=== PATIENT | female | born 1950 | race Caucasian/White ===

== ENCOUNTER 2022-01-25 09:28 | Emergency (ER) | payer MEDICARE, SELFPAY ==
[2022-01-25 09:40] VITALS: BP 156/92; PULSE 86; RESP 18; TEMP 36.6; O2SAT 100; BMI 22.3
--- NOTE | 2022-01-25 10:26 | ED.CHESTPAIN ---
HPI - Chest Pain General Chief Complaint: Chest Pain Stated Complaint: Chest pain Time Seen by Provider: 01/25/22 09:38 History of Present Illness HPI narrative: This 71-year-old female comes in reporting some discomfort in her left chest and breast area. She states that this is been present in the past and now is happening again. She called to make a clinic appointment and was directed to the emergency department. She does not have any nausea, vomiting, lightheadedness, shortness of breath, diaphoresis, or exercise intolerance. She states that she can press on her left upper breast area and reproduce the pain distinctly. She has some very mild symptoms also when taking a real deep breath. She does not report any recent injury event but states that she typically sleeps on her left side and sometimes awakes with similar symptoms. She did go to a chiropractor a while back who stated that this could be costal chondritis. Additionally she had a cardiac workup routinely a couple years ago including echocardiogram and other lab tests. These all returned with very low risk for cardiac disease. She does not have any cardiac risk factors but states that her father did of a heart attack at a young age but he had a heart condition from an infection that occurred in his teenage years. Related Data Home Medications Medication Instructions Recorded Confirmed No Known Home Medications 01/25/22 01/25/22 Allergies Allergy/AdvReac Type Severity Reaction Status Date / Time acetaminophen [From Tylenol] Allergy Vomiting Verified 01/25/22 09:46 midazolam [From Versed] Allergy Vomiting Verified 01/25/22 09:46 Sulfa (Sulfonamide Allergy Unknown Verified 01/25/22 09:46 Antibiotics) Review of Systems Status of ROS Reports: 10 or more systems reviewed and unremarkable except as noted in History and below Narrative Constitutional: No fevers, no weight gain or loss. Eyes: No discharge. No vision changes. HENT: No congestion, no sore throat, no ear pain. Cardiovascular: No palpitations. Chest discomfort as described above. Respiratory: No shortness of breath, no wheezes, no cough. Gastrointestinal: No abdominal pain, no vomiting, no diarrhea. Genitourinary: No dysuria, no hematuria. Musculoskeletal: Normal range of motion. Skin: No rashes, no pruritis. Neurological: No dizziness, weakness, sensory change, speech change. Endo/Heme/Allergies: No bruising or bleeding. No polydipsia. Pysch: no suicidality, no anxiety, no insomnia. All other systems reviewed and are negative. Exam Narrative Exam Narrative: Constitutional: Well-developed, well-nourished, no acute distress. HEENT: Normocephalic, atraumatic. Neck: Normal range of motion. Nontender. Supple. Heart: Regular. No murmurs. Normal rate. Intact distal pulses. Lungs: Clear to auscultation. No wheezes, rhonchi, or rales. Chest discomfort is distinctly reproducible when palpating over the left upper breast and ribs. Abdomen: Normal bowel sounds. Nontender. No rebound tenderness. Genitalia: Deferred. Back: No midline tenderness. Normal range of motion. Extremities: Normal range of motion. No injury. Skin: Intact. No rash. Warm. No erythema or pallor. Neurologic: No altered sensation. No weakness. Alert and oriented. Psychiatric: No suicidality. No anxiety or depression. No insomnia. Nursing notes and vitals signs are reviewed. Const Vital Signs, click to edit/add: Vital Signs - 24 hr 01/25/22 09:40 Temperature 97.9 F Pulse Rate [Left Pulse Oximeter] 86 Respiratory Rate 18 Blood Pressure [Left Upper Arm] 156/92 H Pulse Oximetry 100 Oxygen Delivery Method Room Air Course Vital Signs Vital signs: Initial Vital Signs Temperature 97.9 F 01/25/22 09:40 Temperature Source Temporal Artery Scan 01/25/22 09:40 Pulse Rate 86 01/25/22 09:40 Pulse Rhythm 01/25/22 09:40 Pulse Strength 3+ Normal 01/25/22 09:40 Respiratory Rate 18 01/25/22 09:40 Blood Pressure 156/92 H 01/25/22 09:40 Blood Pressure Mean 113 01/25/22 09:40 Blood Pressure Position Sitting 01/25/22 09:40 Pulse Oximetry 100 01/25/22 09:40 Oxygen Delivery Method 01/25/22 09:40 Vital Signs Temperature 97.9 F 01/25/22 09:40 Pulse Rate 86 01/25/22 09:40 Respiratory Rate 18 01/25/22 09:40 Blood Pressure 156/92 H 01/25/22 09:40 Pulse Oximetry 100 01/25/22 09:40 Oxygen Delivery Method 01/25/22 09:40 Temperature 97.9 F 01/25/22 09:40 Pulse Rate 86 01/25/22 09:40 Respiratory Rate 18 01/25/22 09:40 Blood Pressure 156/92 H 01/25/22 09:40 Pulse Oximetry 100 01/25/22 09:40 Oxygen Delivery Method 01/25/22 09:40 MDM - Chest Pain MDM Narrative Medical decision making narrative: This patient comes in with which she believes is some breast discomfort or chest wall pain. She is not exhibiting any signs or symptoms typical of angina. Her pain is reproducible when palpating her chest wall. This is then very likely chest wall pain. Her exam and vital signs are in normal range. I discussed lab and imaging options which the patient declined in a process of shared decision making. She was hoping to go to a clinic appointment but was redirected here. I did describe signs and symptoms that would indicate a need for return and re-evaluation. Discharge Plan Discharge Clinical Impression: Chest wall pain Patient Disposition: Home, Self-Care Condition: Stable Instructions: Chest Wall Pain (ED) Additional Instructions: Use [id number] medicines as needed and directed. Follow up with MD or return if worsening symptoms occur. Prescriptions: No Action No Known Home Medications Stand Alone Forms: [facility] Info Instructions
== END 2022-01-25 10:42 | disposition home or self-care (01) ==
LOC: ED 10:34
PROVIDERS: Emergency Provider Emergency Medicine Emergency Medical Services; PCP Family Medicine
DX: R07.89 Other chest pain (principal)
CPT/HCPCS: 99283; 99284

== ENCOUNTER 2024-10-14 23:30 | Emergency (ER) | payer MEDICARE, SELFPAY ==
--- OUTSIDE RECORDS SUMMARY | 2024-10-14 23:32 | XMS_ITS | Encounter Summary ---
Author Organization [place] Address [address] [place] [address] Care Team Providers Care Animal Services Officer Name Role Phone Aurora Reyes PA-C Primary Care Provider Aurora Reyes PA-C Unavailable [phone] Aurora Reyes PA-C Unavailable [phone] Lavern Birmingham MD Primary Care Provider [phone] Keith Frost MD Unavailable [phone] Encounter Details Date Type Department Care Team (Late st Contact Info) Description 01/30/2017 [facility] Blood and Marrow Transplant Program [address] [address] [facility] Social History Tobacco Use Types Packs/Day Years Used Date Smoking Tobacco: Former Cigarettes 0.5 3 1 07/14/1970 - 05/28/1974 Smokeless Tobacco: Never Alcohol Use Standard Drinks/Week Comments No 0 (1 standard drink = 0.6 oz pur e alcohol) Comments No Sex and Gender Information Value Date Recorded Sex Assigned at Not on file 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 Gender Identity Not on file Sexual Orientation Not on file 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 as of this encounter Plan of Treatment Not on file documented as of this encounter Visit Diagnoses Not on filedocumented in this encounter Care Teams Animal Services Officer Relationship Specialty Start Date End Date Aurora Reyes PA-C PCP - General Physician Telephone Claims Representative 10/26/16 07/03/23 Aurora Reyes PA-C [facility] [address] [place] [address] PCP - Assigned PCP 10/15/16 08/06/18 Lavern Birmingham MD [address] [place] [address] PCP - General Family Medicine 11/15/23 Aurora Reyes PA-C [facility] [address] [place] [address] Assigned PCP 10/15/16 05/29/20 [place] [address] [place] [address] Assigned Surgical Provider 11/25/23 documented as of this encounter
--- OUTSIDE RECORDS SUMMARY | 2024-10-14 23:32 | XMS_ITS | Encounter Summary ---
Author Organization [place] Address [facility] [place] [address] Care Team Providers Care Bible Worker Name Role Phone Aurora Reyes PA-C Primary Care Provider Aurora Reyes PA-C Unavailable [phone] Aurora Reyes PA-C Unavailable [phone] Lavern Birmingham MD Primary Care Provider Keith Frost MD Unavailable [phone] Reason for Visit * Reason Onset Date Comments MyChart Communication 05/21/2017 Appointment 05/21/2017 Annual physical Encounter Details Date Type Department Care Team (Late st Contact Info) Description 05/21/2017 [facility] Medical Advice [facility] [address] [place] [address] [address] [place] [address] Aurora Reyes PA-C [address] [place], [place] [address] MyChart Communication; Appointment (Annual... 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 as of this encounter Miscellaneous Notes * Telephone Encounter - Odette Kang RN - 05/21/2017 11:02 AM CST Sent mychart as per below Odette Kang RN MATION MACHINE OPERATOR documented in this encounter Plan of Treatment Not on file documented as of this encounter Visit Diagnoses Not on filedocumented in this encounter Care Teams Bible Worker Relationship Specialty Start Date End Date Aurora Reyes PA-C PCP - General Physician Utility Mechanic 10/26/16 07/03/23 Aurora Reyes PA-C [address] [place] [address] PCP - Assigned PCP 10/15/16 08/06/18 Lavern Birmingham MD [address] [place] [address] PCP - General Family Medicine 11/15/23 Aurora Reyes PA-C [facility] [address] [facility] [address] [place] [address] Assigned PCP 10/15/16 05/29/20 [place] [address] [address] Assigned Surgical Provider 11/25/23 documented as of this encounter
--- OUTSIDE RECORDS SUMMARY | 2024-10-14 23:32 | XMS_ITS | Encounter Summary ---
Author Organization [place] Address [address] [place] [address] Care Team Providers Care Pipelines Manager Name Role Phone Neftaly Smith MD Primary Care Provider [phone] Aurora Reyes PA-C Primary Care Provider Aurora Reyes PA-C Unavailable [phone] Aurora Reyes PA-C Unavailable [phone] Lavern Birmingham MD Primary Care Provider [phone] Keith Frost MD Unavailable [phone] Reason for Visit * Reason Onset Date Comments MyChart Communication 07/22/2014 Encounter Details Date Type Department Care Team (Late st Contact Info) Description 07/22/[address] 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 as of this encounter Plan of Treatment Not on file documented as of this encounter Visit Diagnoses Not on filedocumented in this encounter Care Teams Pipelines Manager Relationship Specialty Start Date End Date Neftaly Smith MD PCP - General Family Practice 09/29/11 10/25/16 Aurora Reyes PA-C PCP - General Physician Ethylene Compressor Operator 10/26/16 07/03/23 Aurora Reyes PA-C [place] [id number] [facility] [address] [place] [address] PCP - Assigned PCP 10/15/16 08/06/18 Lavern Birmingham MD [address] [place] [address] PCP - General Family Medicine 11/15/23 Aurora Reyes PA-C [facility] [address] [place] [address] [address] [place] [address] Assigned PCP 10/15/16 05/29/20 [place] [address] [place] [address] Assigned Surgical Provider 11/25/23 documented as of this encounter
--- OUTSIDE RECORDS SUMMARY | 2024-10-14 23:32 | XMS_ITS | Encounter Summary ---
Author Organization [facility] Address [address] [place] [address] Care Team Providers Care Powerhouse Electrician Name Role Phone Unavailable Primary Care Provider Unavailabl e Reason for Referral * Outpatient (Routine) - Closed Specialty Diagnoses / Procedures Referred By Lou t Referred To Contact Diagnoses Pain Hip Right Arthroplasty Total Hip Replacement Status Post Procedures DX Hip And Pelvis Right 4+ Views Ivan Lubin M.D. [address] [place] [address] Phone: tel: fax: [facility] Referral ID Status Reason Start Date Expiration Date Visits Re quested Visits Authorized [id number] Closed 09/19/2023 09/18/2024 1 1 Encounter Details Date Type Department Care Team (Late st Contact Info) Description 09/19/2023 Orders Only Department of Orthopedic Surgery in [place], [place] [address] [place] [phone] [facility], MD Isaac Pain Hip Right; Arthroplasty Total Hip Replacement Status Post Social History Tobacco Use Types Packs/Day Years Used Date Smoking Tobacco: Never Assessed Nutrition Answer Date Recorded Nutrition: EVOO Fat Source Unknown 08/30 Nutrition: Servings of Fruits/Vegetables per Day Not on file 08/31/2023 Dental Answer Date Recorded Dental: Regular Dentist Unknown 08/31/19 24 Comments Unknown Sex and Gender Information Value Date Recorded Sex Assigned at Choose not to disclose 11:00 AM CDT Legal Sex Female 9:[address] LANDSCAPE ARCHITECT Gender Identity Female 01/28/2024 11:00 AM CDT Sexual Orientation Choose not to disclose 2023 11:00 AM CDT documented as of this encounter Plan of Treatment Not on file documented as of this encounter Results * DX Hip And Pelvis Right 4+ Views (01/28/2024 9:22 AM CDT) Anatomical Region Laterality Modality Lower Extremity, Pelvis, Hip , Musculoskeletal RST LOS, Musculoskeletal ARZ LOS, Muskuloskeletal FLA LOS Right Digit al Radiography Impressions 01/28/2024 9:51 AM CDT Uncemented right SANTA. Very thin rim of lucency about the tip of the femoral stem. Left SANTA. 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 Pelvic surgical clip. Osteopenia. 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 Narrative 01/28/2024 9:51 AM CDT EXAM: DX HIP AND PELVIS RIGHT 4+ VIEWS Procedure Note Amalia Mckenzie M.D. - 01/28/2024 EXAM: DX HIP AND PELVIS RIGHT 4+ VIEWS IMPRESSION: Uncemented right SANTA. Very thin rim of lucency about the tip of thefemoral stem. Left SANTA. 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 Pelvic surgical clip. Osteopenia. Heterotopic ossificationadjacent to the right ischium. Ivan Lubin M.D. [facility] OCEDURES Final Result documented in this encounter Visit Diagnoses Diagnosis Pain Hip Right Arthroplasty Total Hip Replacement Status Post Pain Hip Right Arthroplasty Total Hip Replacement Status Post documented in this encounter
--- OUTSIDE RECORDS SUMMARY | 2024-10-14 23:32 | XMS_ITS | Encounter Summary ---
Author Organization [place] Address [address] [place] [address] Care Team Providers Care Tubing Drier Name Role Phone Neftaly Smith MD Primary Care Provider + [phone] Aurora Reyes PA-C Primary Care Provider Aurora Reyes PA-C Unavailable [phone] Aurora Reyes PA-C Unavailable [phone] Lavern Birmingham MD Primary Care Provider [phone] Keith Frost MD Unavailable [phone] Encounter Details Date Type Department Care Team (Late st Contact Info) Description 01/05/2015 MyC Medical Advice [facility] [address] [place] [address] [place] [address] [place] [address] Social History Tobacco Use Types Packs/Day Years Used Date Smoking Tobacco: Former Cigarettes 0.5 3 1 07/14/1970 - 05/28/1974 Smokeless Tobacco: Never Alcohol Use Standard Drinks/Week Comments No 0 (1 standard drink = 0.6 oz pur e alcohol) Comments No Sex and Gender Information Value Date Recorded Sex Assigned at Not on file Legal Sex Female 5:10 AM CFA Gender Identity Not on file Sexual Orientation Not on file 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 as of this encounter Plan of Treatment Not on file documented as of this encounter Visit Diagnoses Not on filedocumented in this encounter Care Teams Tubing Drier Relationship Specialty Start Date End Date Neftaly Smith MD PCP - General Family Practice 09/29/11 10/25/16 Aurora Reyes PA-C PCP - General Physician Automatic Casting Machine Operator 10/26/16 07/03/23 Aurora Reyes PA-C [place] [id number] [facility] [address] [place] [address] PCP - Assigned PCP 10/15/16 08/06/18 Lavern Birmingham MD [address] [place] [address] PCP - General Family Medicine 11/15/23 Aurora Reyes PA-C [address] [place] [address] Assigned PCP 10/15/16 05/29/20 [place] [address] [place] [address] Assigned Surgical Provider 11/25/23 documented as of this encounter
--- OUTSIDE RECORDS SUMMARY | 2024-10-14 23:32 | XMS_ITS | Clinical Summary ---
Author Organization [facility] Address [address] [place] [address] Care Team Providers Care Clinical Technician Name Role Phone Lavern Birmingham MD Primary Care Provider Keith Frost MD Unavailable [phone] Allergies Active Allergy Reactions Criticality Noted Date Comments Codeine Sulfate Nausea and Vomiting 03/29/2010 Fentanyl Nausea and Vomiting 03/29/2010 Gabapentin Dermatitis,Other (Se e Comments) 01/19/2015 Hands and feet become red and have a tingling feeling. Medications Capsicum-Garlic 200-300 MG CAPS Take 1 capsule by mouth daily 5 Active ascorbic acid (VITAMIN C) 500 MG tablet Take 1 tablet (500 mg) by mouth daily 30 tablet 5 Active multivitamin, therapeutic with minerals (THERA-VIT-M) TABS Take 1 tablet by mouth daily Active VITAMIN D, CHOLECALCIFEROL, PO Take 1,000 Units by mouth daily Active amitriptyline (ELAVIL) 50 MG tabletIndication s:Fibromyalgia Take 1 tablet (50 mg) by mouth At Bedtime 90 tablet 3 7 Active Additional Information Patient not taking.Reported on 11/15/2023 amitriptyline (ELAVIL) 10 MG tabletIndication s:Fibromyalgia Take 40 mg for 1 week. Decrease dose by 10 mg every week until tapered off 90 tablet 1 7 Active Additional Information Patient not taking.Reported on 11/15/2023 lisinopril (ZESTRIL) 20 MG tablet Take 1 tablet by mouth daily 4 Active Active Problems Patient Care Coordination No te Formatting of this note migh t be different from the original. [email or web address] Problem Noted Date Diagnosed Date Mohs defect of right nose 11/15/2023 Breast cancer screening 07/15/2015 Overview (07/15/2015): Mammogram provokes fibromyalgia Degenerative arthritis of hip 01/18/2015 S/P total hip arthroplasty 08/13/2013 Hyperlipidemia LDL goal <130 03/14/2012 Hypertension goal BP (blood pressure) < 140/90 0 10/02/2011 Fibromyalgia 03/29/2010 Resolved Problems Problem Noted Date Diagnosed Date Resolved Date Degenerative arthritis of hip 05/08/2012 08/13/2013 Hip arthritis 05/03/2012 08/13/2013 Lumbago 10/26/2011 11/22/2011 Hip pain 10/26/2011 11/22/2011 Advanced directives, counseling/discussion 02/24/2011 11/19/2023 Overview (02/24/2011): Advance Directive Problem List Overview: Name Relationship Phone Primary Health Care Agent Alternative Health Care Agent Patient states has Advance Directive and will bring in a copy to clinic. 02/24/2011 Immunizations Immunization Administration Dates Next Due TDAP (Adacel,Boostrix) 02/15/2009 Family History Medical History Relation Comments Cardiovascular Father [place] Cancer Maternal Grandfather Breast Cancer Maternal Grandmother Diagnosed @ 69 lived to be 91 Cancer Maternal Grandmother Cerebrovascular Disease Mother 2 stroke Cancer Paternal Grandfather Cancer Paternal Grandmother Gynecology Sister 1 Uterine cancer Other Cancer Sister 2 uterine Hypertension Sister 3 Cervical Cancer Sister 4 Relation Status Comments Father Maternal Grandfather Maternal Grandmother Mother 04/17/12 Paternal Grandfather Paternal Grandmother Sister 1 Alive Sister 2 Sister 3 Sister 4 Social History Tobacco Use Types Packs/Day Years Used Date Smoking Tobacco: Former Cigarettes 0.5 3 1 07/14/1970 - 05/28/1974 Smokeless Tobacco: Never Alcohol Use Standard Drinks/Week Comments No 0 (1 standard drink = 0.6 oz pur e alcohol) PHQ-2 Answer Date Recorded PHQ-2 Score 0 11/15/2023 Adolescent Education Answer Date Record ed Getting School Help Needed Not on file 11/14 Comments No Sex and Gender Information Value Date Recorded Sex Assigned at Not on file Legal Sex Female 5:10 AM MACHINIST SET UP Gender Identity Not on file Sexual Orientation Not on file 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 Last Filed Vital Signs Vital Sign Reading Time Taken Comments Blood Pressure 149/89 12/27/2023 11:45 AM CDT Pulse 80 12/27/2023 11:45 AM CDT Temperature 36.7 C (98.1 F) 12/27/2023 11:45 AM CDT Respiratory Rate 16 12/27/2023 11:4 5 AM CDT Oxygen Saturation 99% 12/27/2023 11: 45 AM CDT Inhaled Oxygen Concentration - - Weight 59.8 kg (131 lb 14.4 oz) 017 10:06 AM MACHINIST SET UP Height 163.5 cm (5' 4.37) 10/26/2016 1 1:22 AM CDT Body Mass Index 22.38 10/26/2016 11:22 AM CDT Plan of Treatment Health Maintenance Due Date Last Done Comments ANNUAL REVIEW OF HM ORDERS 1950 CT COLONOGRAPHY 1950 FIT 1950 FLEX SIG 1950 sDNA (Cologuard) 1950 Pneumococcal Vaccine: 50+ Years (1 of 1 - PCV) 2002 ZOSTER IMMUNIZATION (1 of 2) 2002 ADVANCE CARE PLANNING 02/25/2016 02/24/2011, 011 LIPID 10/05/2016 10/06/2015, 09/2015, 01/28/2014, Additional history exists BMP 10/05/2017 10/05/2016, 09/2015, 10/06/2015, Additional history exists FALL RISK ASSESSMENT 2017 DTAP/TDAP/TD IMMUNIZATION (2 - Td or Tdap) 02/15/2019 02/15/2009, 08/02/1998 DIABETES SCREENING 10/06/2019 10/05/2016, 0 10/06/2015, 10/06/2015, Additional history exists COLONOSCOPY 11/05/2021 11/06/2011 COLORECTAL CANCER SCREENING 11/05/2021 COVID-19 Vaccine ( - 2023- season) 2024 MEDICARE ANNUAL WELLNESS VISIT 02/24/2024 02/23/2023, 02/02/2022, 12/09/2020, Additional history exists PHQ-2 (once per calendar year) 2024 11/15/2023, 05/21/2017 MAMMO SCREENING 02/24/2026 02/25/2024, 02/03, 01/31/2022, Additional history exists RSV VACCINE (1 - 1-dose 75+ series) 11/27/2027 DEXA 02/02/2037 02/02/2022 INFLUENZA VACCINE Discontinued 03/08/2011 HEPATITIS C SCREENING Completed 12/09/2020 HPV IMMUNIZATION Aged Out No longer e ligible based on patient's age to complete this topic MENINGITIS IMMUNIZATION Aged Out No l onger eligible based on patient's age to complete this topic Medical Devices Implanted Type Area Talent Development Director Device Identifier Shelf Expiration Date Model / Serial / Lot Imp Shell Acetabulum Zim Multi 50mm [id number] Implanted:Qty: 1 on 05/08/2012 by Shorty Mcnamara MD at [facility] Left: Hip [employer] 03/03/20220-0 5 0-20 / [id number] Imp Scr Zim 6.5x35mm Acet Cup Self Tap [id number] Implanted:Qty: 1 on 05/08/2012 by Shorty Mcnamara MD at [facility] Left: Hip [employer] 01/31/2022-0-0 6 5-35 / [id number] Imp Scr Zim 6.5x20mm Acet Cup Self Tap [id number] Implanted:Qty: 1 on 05/08/2012 by Shorty Mcnamara MD at [facility] Left: Hip [employer] 05/03/20200-0 6 5-20 / / [id number] Imp Liner Acetabulum Zim Xlpe [id number] Implanted:Qty: 1 on 05/08/2012 by Shorty Mcnamara MD at [facility] Left: Hip [employer] 04/02/20176305-0 5 0-32 / / [id number] Imp Stem Zim Taper Kinectiv M/L Sz 12.5 Implanted:Qty: 1 on 05/08/2012 by Shorty Mcnamara MD at [facility] Left: Hip 05/03/2021- / [id number] Imp Femoral Neck Zim Mod Taper Kinectiv E [id number] Implanted:Qty: 1 on 05/08/2012 by Shorty Mcnamara MD at [facility] Left: Hip 08/31/202148 2- / [id number] Imp Head Femoral Zim +0x32mm Implanted:Qty: 1 on 05/08/2012 by Shorty Mcnamara MD at [facility] Left: Hip 03/03/20228018-03 - / [id number] Imp Scr Zim 6.5x30mm Acet Cup Self Tap Implanted:Qty: 1 on 01/18/2015 by Shorty Mcnamara MD at [facility] Right: Hip [employer] 11/01/2024- / [id number] / [id number] Imp Scr Zim 6.5x30mm Acet Cup Self Tap Implanted:Qty: 1 on 01/18/2015 by Shorty Mcnamara MD at [facility] Right: Hip [employer] 10/01/2024 5-30 / [id number] / [id number] Imp Stem Zim Taper Kinectiv M/L Sz 13.5 [id number] Implanted:Qty: 1 on 01/18/2015 by Shorty Mcnamara MD at [facility] Right: Hip [employer] 08/01/2024-7713-01 3-00 / [id number] / [id number] Imp Head Femoral Zim Versys 36mm +0 [id number] Implanted:Qty: 1 on 01/18/2015 by Shorty Mcnamara MD at [facility] Right: Hip [employer] 12/01/2024-8018-03 6-02 / [id number] Imp Femoral Neck Zim Mod Taper Kinectiv K [id number] Implanted:Qty: 1 on 01/18/2015 by Shorty Mcnamara MD at [facility] Right: Hip [employer] 11/01/20247848-00 2-00 / [id number] Acetabular Shell 52mm Implanted:Qty: 1 on 01/18/2015 by Shorty Mcnamara MD at [facility] Right: Hip [employer] 04/03/2023 / [id number] Imp Liner Acetabulum Zim Xlpe [id number] Implanted:Qty: 1 on 01/18/2015 by Shorty Mcnamara MD at [facility] Right: Hip [employer] 06/03/2019-6305-05 0-36 / [id number] Procedures Procedure Name Priority Date/Time Associated Diagnosis Comments MA SCREENING DIGITAL BILATERAL Routine 05/02/2017 10:45 AM MACHINIST SET UP Visit for screening mammogram COMPREHENSIVE METABOLIC PANEL Routine 10/05/2016 9:03 AM CDT Idiopathic progressive polyneuropathy LIPID REFLEX TO DIRECT LDL PANEL Routine 10/06/2015 7:40 AM CDT Hyperlipidemia LDL goal <130 COLONOSCOPY Routine 11/06/2011 from Last 3 Months or Most Recently Relevant to Health Maintenance Results * MA Screening Digital Bilateral (05/02/2017 10:45 AM MACHINIST SET UP) Anatomical Region Laterality Modality Breast Bilateral Mammography Impressions 05/03/2017 8:49 AM MACHINIST SET UP IMPRESSION: BI-RADS CATEGORY: 2 - Benign Finding(s). RECOMMENDED FOLLOW-UP: Annual Mammography Results to be sent to patient. I have personally reviewed the examination and initial interpretation and I agree with the findings. JUAN VASQUEZ MD Narrative 05/03/2017 8:49 AM MACHINIST SET UP SCREENING MAMMOGRAM, BILATERAL, DIGITAL, with CAD HISTORY: Asymptomatic, routine screening. History of sister with breast cancer at age 60. 3 second-degree relatives with history of breast cancer, the earliest diagnosis being at age 62. History of breast biopsy in 1976. COMPARISON: Screening mammogram 09/23/2012, 02/15/2009 TECHNIQUE: Routine screening mammogram with CAD. BREAST DENSITY: Scattered fibroglandular densities. FINDINGS: No significant change. The surgical scar in the left medial breast is marked. Procedure Note Juan Vasquez MD - 05/03/2017 SCREENING MAMMOGRAM, BILATERAL, DIGITAL, with CAD HISTORY: Asymptomatic, routine screening. History of sister with breast cancer at age 60. 3 second-degree relatives with history of breast cancer, the earliest diagnosis being at age 62. History of breast biopsy in 1976. COMPARISON: Screening mammogram 09/23/2012, 02/15/2009 TECHNIQUE: Routine screening mammogram with CAD. BREAST DENSITY: Scattered fibroglandular densities. FINDINGS: No significant change. The surgical scar in the left medial breast is marked. IMPRESSION: BI-RADS CATEGORY: 2 - Benign Finding(s). RECOMMENDED FOLLOW-UP: Annual Mammography Results to be sent to patient. I have personally reviewed the examination and initial interpretation and I agree with the findings. JUAN VASQUEZ MD Aurora Reyes PA-C IMG MAMMOGRAPHY ORDERAB LES Final Result * Comprehensive metabolic panel (10/05/2016 9:03 AM CDT) Sodium 141 133 - 144 mmol/L [facility] Potassium 4.5 3.4 - 5.3 mmol/L [facility] Chloride 104 94 - 109 mmol/L [facility] Carbon Dioxide 28 20 - 32 mmol/L [facility] Anion Gap 9 3 - 14 mmol/L [facility] Glucose 91 70 - 99 mg/dL [facility] Urea Nitrogen 16 7 - 30 mg/dL [facility] Creatinine 0.66 0.52 - 1.04 mg/dL [facility] GFR Estimate >90 Non GFR Calc >60 mL/min/1. 7m2 [facility] GFR Estimate If Black >90 GFR Calc >60 mL/min/1. 7m2 [facility] Calcium 9.9 8.5 - 10.1 mg/dL [facility] Bilirubin Total 0.5 0.2 - 1.3 mg/dL [facility] Albumin 4.0 3.4 - 5.0 g/dL [facility] Protein Total 8.0 6.8 - 8.8 g/dL [facility] Alkaline Phosphatase 68 40 - 150 U/L [facility] ALT 28 0 - 50 U/L [facility] AST 16 0 - 45 U/L [facility] Blood specimen (specimen) 10/05/2016 9:03 AM CDT 10/05/2016 9:04 AM CDT Aurora Reyes PA-C LAB - BLOOD ORDERABLES Final Result [facility] [address] [place] [address] * (ABNORMAL) Lipid panel reflex to direct LDL (10/06/2015 7:40 AM CDT) Cholesterol 227(H) <200 mg/dL [facility] Comment:Desirable: <200 mg/d l Triglycerides 79 <150 mg/dL [facility] Comment:Fasting specimen HDL Cholesterol 61 >49 mg/dL [facility] LDL Cholesterol Calculated 150(H) <100 mg/dL [facility] Comment: Above desirable: 100-129 mg/dl Borderline High: 130-159 mg/dL High: 160-189 mg/dL Very high: >189 mg/dl Non HDL Cholesterol 166(H) <130 mg/dL [facility] Comment: Above Desirable: 130-159 mg/dl Borderline high: 160-189 mg/dl High: 190-219 mg/dl Very high: >219 mg/dl Blood specimen (specimen) 10/06/2015 7:40 AM CDT 10/06/2015 8:15 AM CDT us Bao Rodney MD LAB - BLOOD ORDERABLES Fi nal Result [facility] [address] [place] [address] * COLONOSCOPY (11/06/2011) us Neftaly Smith MD PROCEDURES Final Result from Last 3 Months or Most Recently Relevant to Health Maintenance Insurance [employer] MEDICARE ADVANTAGE [employer] MEDICARE ADVANTAGE Advance Directives For more information, please contact: [phone] Documents on File Type Date Recorded Patient Digital Editor Expl anation Advance Directives and Living Will 05/26/2012 5:51 PM VALIDATION OF AD-05/08/2012 Advance Directives and Living Will 05/26/2012 5:51 PM HEALTH CARE DIRECTIVE-05/08/2012 * Full Code (Latest Code Status on File) Date Activated Date Inactivated Comments 01/20/2015 9:42 AM * Full Code Date Activated Date Inactivated Comments 01/18/2015 4:59 PM 01/20/2015 9:42 AM * Full Code Date Activated Date Inactivated Comments 05/10/2012 8:30 AM 01/18/2015 4:59 PM * Full Code Date Activated Date Inactivated Comments 05/08/2012 6:37 PM 05/10/2012 8:30 AM Care Teams Clinical Technician Relationship Specialty Start Date End Date Lavern Birmingham MD [address] [place] [address] PCP - General Family Medicine 11/15/23 [place] [address] [place] [address] Assigned Surgical Provider 11/25/23
--- OUTSIDE RECORDS SUMMARY | 2024-10-14 23:32 | XMS_ITS | Encounter Summary ---
Author Organization [facility] Address [address] [place] [address]. 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
--- OUTSIDE RECORDS SUMMARY | 2024-10-14 23:32 | XMS_ITS | Clinical Summary ---
Author Organization [facility] Address [address] [place] [address] Care Team Providers Care Glove Parts Cutter Name Role Phone Unavailable Primary Care Provider Unavailabl e Source Comments Patient records contain information from all sites at [facility]. For routine questions regarding patient records, call [phone] during business hours, M-F 8:00 AM - 5:00 PM Central Time. Record requests for emergency care only can be directed to [phone] at any time.[facility] Allergies Active Allergy Reactions Criticality Noted Date Comments Chlorthalidone Itching 07/26/2007 Codeine Nausea And Vomiting 06/10/2007 Fentanyl Nausea And Vomiting,Other (see comments) 03/29/2010 Gabapentin Dermatitis,Other (se e comments),Rash 01/19/2015 Hands and feet become red and have a tingling feeling. Grass Pollen Headache,Other (see comments) 11/27/2023 Medications * This document contains information received from the source organization and may not represent a complete record from that organization. lisinopriL 20 mg tablet Take 1 tablet by mouth daily. 10/04/2023 Active ascorbic acid, vitamin C, (Vitamin C) 1,000 mg tablet 02/13/2023 Act rudolph cholecalciferol, vitamin D3, 10 mcg (400 unit) capsule Active magnesium 200 mg tablet Active multivitamin tablet Take 1 tablet by mouth daily. 05/23/2007 Active vitamin E 180 mg (400 Unit) capsule Active omega 1-sya-rje-fish oil 100-400-1,000 mg capsule Take 1 g by mouth daily. 12/31/2014 Active UNABLE TO FIND GARLIC Activ e Social History Tobacco Use Types Packs/Day Years Used Date Smoking Tobacco: Never Assessed [facility] Utilities Answer Date Recorded In the past 12 months has shiva e electric, gas, oil, or water company threatened to shut off services in your home? Patient declined 01/28/2024 Exercise Vital Sign Answer Date Recorde d On average, how many days pe r week do you engage in moderate to strenuous exercise (like a brisk walk)? 5 days 01/28/2024 On average, how many minutes do you engage in exercise at this level? 30 min 01/28/2024 Hunger Vital Sign Answer Date Recorded Within the past 12 months, y ou worried that your food would run out before you got the money to buy more. Never true 01/28/20 Within the past 12 months, t he food you bought just didn't last and you didn't have money to get more. Never true 01/28/2024 PRAPARE - Transportation Answer Date Re corded In the past 12 months, has l ack of transportation kept you from medical appointments or from getting medications? No 01/03 In the past 12 months, has l ack of transportation kept you from meetings, work, or from getting things needed for daily living? No 01/28/2024 Nutrition Answer Date Recorded On average, how many serving s of fruits and vegetables do you eat per day (serving size is equal to 1 cup or approximately the size of a tennis ball)? 3-5 01/28/2024 Dental Answer Date Recorded Dental: Regular Dentist No 01/28/20 Employment Answer Date Recorded Employment status Retired 01/28/2024 Housing Stability Answer Date Recorded What is your living situation today? 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 Gender Identity Female 01/28/2024 11:00 AM CDT Sexual Orientation Choose not to disclose 2023 11:00 AM CDT Plan of Treatment Health Maintenance Due Date Last Done Comments Bone Density Scan (Osteoporosis Screen) 1952 CT Colonography 1950 Cologuard 1950 FIT 1950 Hepatitis C Screening 1950 Pneumococcal vaccine (50+ years) (1 of 1 - PCV) 2002 Zoster Vaccines (1 of 2) 2002 DTaP,Tdap,and Td Vaccines (2 - Td or Tdap) 02/15/2019 02/15/2009 Colonoscopy 11/05/2021 11/06/2011 Colorectal Cancer Screening 11/05/2021 Mammogram 01/31/2023 01/31/2022, 01/31/2022 COVID-19 Vaccine (1 - 2023-2 5 season) 2024 Influenza Vaccine (#1) 2024 03/08/2011 Depression Screening (Annual PHQ-2) 06/04/2024 Fall Risk Screen (Annual) 06/04/2024 Creatinine Level (Kidney Function Test) 10/03/2024 10/04/2023 Sodium Level 10/03/2024 10/04/2023 Potassium Level 2024 11/27/2023, 10/04/2023 Fasting Glucose for Diabetes Screening 10/03/2026 10/04/2023, 02/23/2023, 12/09/2020 IPV Vaccines Aged Out No longer eligi ble based on patient's age to complete this topic Medical Devices Implanted Type Area Supervisor Boiler Repair Device Identifier Shelf Expiration Date Model / Serial / Lot Hip Implant Hip Implant Hip Insurance [facility]
--- OUTSIDE RECORDS SUMMARY | 2024-10-14 23:32 | XMS_ITS | Encounter Summary ---
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
--- OUTSIDE RECORDS SUMMARY | 2024-10-14 23:32 | XMS_ITS | Encounter Summary ---
Author Organization [facility] Address [address] [place] [address]. [place] [address] Care Team Providers Care Control Director Name Role Phone Neftaly Smith MD Primary Care Provider [phone] Aurora Reyes PA-C Primary Care Provider Aurora Reyes PA-C Unavailable [phone] Aurora Reyes PA-C Unavailable [phone] Lavern Birmingham MD Primary Care Provider [phone] Keith Frost MD Unavailable [phone] Encounter Details Date Type Department Care Team (Late st Contact Info) Description 04/13/2016 [facility] Medical Advice [address] [address] Jonah Stov[place], [place] Social History Tobacco Use Types Packs/Day Years Used Date Smoking Tobacco: Former Cigarettes 0.5 3 1 07/14/1970 - 05/28/1974 Smokeless Tobacco: Never Alcohol Use Standard Drinks/Week Comments No 0 (1 standard drink = 0.6 oz pur e alcohol) Comments No Sex and Gender Information Value Date Recorded Sex Assigned at Not on file Legal Sex Female 5:10 AM CLINICAL 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 Gender Identity Not on file Sexual Orientation Not on file 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 as of this encounter Plan of Treatment Not on file documented as of this encounter Visit Diagnoses Not on filedocumented in this encounter Care Teams Control Director Relationship Specialty Start Date End Date Neftaly Smith MD PCP - General Family Practice 09/29/11 10/25/16 Aurora Reyes PA-C PCP - General Physician Type Bar And Segment Assembler 10/26/16 07/03/23 Aurora Reyes PA-C [facility] [address] [facility] [address] [place] [address] PCP - Assigned PCP 10/15/16 08/06/18 Lavern Birmingham MD [address] [place] [address] PCP - General Family Medicine 11/15/23 Aurora Reyes PA-C [address] [place] [address] Assigned PCP 10/15/16 05/29/20 [place] [address] [place] [address] Assigned Surgical Provider 11/25/23 documented as of this encounter
--- OUTSIDE RECORDS SUMMARY | 2024-10-14 23:32 | XMS_ITS | Encounter Summary ---
Author Organization [place] Address [address] [facility]. [address] Care Team Providers Care Tumble Tailstock Turret Lathe Operator Name Role Phone Aurora Reyes PA-C Primary Care Provider Aurora Reyes PA-C Unavailable [phone] Aurora Reyes PA-C Unavailable [phone] Lavern Birmingham MD Primary Care Provider [phone] Keith Frost MD Unavailable [phone] Reason for Visit * Reason Onset Date Comments MyChart Communication 03/10/2017 request narcisa wilkinson Encounter Details Date Type Department Care Team (Latest Contact Info) Description 03/10/2017 [facility] [place] [facility] [place] [facility] [address] [place] [address] [address] [address] Aurora Reyes PA-C [address] [place], [place] [address] [facility] ([facility]) Communication (request med, scopal... 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 as of this encounter Miscellaneous Notes * Telephone Encounter - Dory Ribera RN - 03/12/2017 7:47 AM CDT Karen See pt med request below Pharm cued Last OV 10/24/16 Dory Ribera RN [facility] documented in this encounter Plan of Treatment Not on file documented as of this encounter Visit Diagnoses Diagnosis Motion sickness, initial encounter- Primary documented in this encounter Care Teams Tumble Tailstock Turret Lathe Operator Relationship Specialty Start Date End Date Aurora Reyes PA-C PCP - General Physician Paraprofessional Interpreter 10/26/16 07/03/23 Aurora Reyes PA-C [address] [place] [address] PCP - Assigned PCP 10/15/16 08/06/18 Lavern Birmingham MD [address] [place] [address] PCP - General Family Medicine 11/15/23 Aurora Reyes PA-C [facility] [address] [place] [address] [address] [place] [address] Assigned PCP 10/15/16 05/29/20 [place] [address] [place] [address] Assigned Surgical Provider 11/25/23 documented as of this encounter
--- OUTSIDE RECORDS SUMMARY | 2024-10-14 23:32 | XMS_ITS | Encounter Summary ---
Author Organization [place] Address [facility] [place] [address] Care Team Providers Care Medical Coding Specialist Name Role Phone Aurora Reyes PA-C Primary Care Provider Aurora Reyes PA-C Unavailable [phone] Aurora Reyes PA-C Unavailable [phone] Lavern Birmingham MD Primary Care Provider [phone] Keith Frost MD Unavailable Reason for Visit * Reason Onset Date Comments MyChart Communication 11/29/2016 Stress Test Training And Development Rep 11/29/2016 Encounter Details Date Type Department Care Team (Late st Contact Info) Description 11/29/2016 [facility] [place] [facility] [address] [place] [address] [address] [place] [address] Aurora Reyes PA-C [address] [place], [place] [address] MyChart Communication; Stress Test Transcr... 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 Results request: Stress test 11/16/2016 Thank you, Odette Kang RN documented in this encounter Plan of Treatment Not on file documented as of this encounter Visit Diagnoses Not on filedocumented in this encounter Care Teams Medical Coding Specialist Relationship Specialty Start Date End Date Aurora Reyes PA-C PCP - General Physician Labor Contractor 10/26/16 07/03/23 Aurora Reyes PA-C [address] [place] [address] PCP - Assigned PCP 10/15/16 08/06/18 Lavern Birmingham MD [address] [place] [address] PCP - General Family Medicine 11/15/23 Aurora Reyes PA-C [address] [place] [address] Assigned PCP 10/15/16 05/29/20 [place] [address] [facility] [place] [address] Assigned Surgical Provider 11/25/23 documented as of this encounter
--- OUTSIDE RECORDS SUMMARY | 2024-10-14 23:32 | XMS_ITS | Encounter Summary ---
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
--- OUTSIDE RECORDS SUMMARY | 2024-10-14 23:32 | XMS_ITS | Encounter Summary ---
Author Organization [place] Address [address] [place] [address] Care Team Providers Care Environmental Services Attendant Name Role Phone Neftaly Smith MD Primary Care Provider [phone] Aurora Reyes PA-C Primary Care Provider Aurora Reyes PA-C Unavailable [phone] Aurora Reyes PA-C Unavailable [phone] Lavern Birmingham MD Primary Care Provider [phone] Keith Frost MD Unavailable [phone] Encounter Details Date Type Department Care Team (Late st Contact Info) Description 08/05/2015 My[facility] Medical Advice [facility] [address] [place] [address] [place] [address] [place] [address] Social History Tobacco Use Types Packs/Day Years Used Date Smoking Tobacco: Former Cigarettes 0.5 3 1 07/14/1970 - 05/28/1974 Smokeless Tobacco: Never Alcohol Use Standard Drinks/Week Comments No 0 (1 standard drink = 0.6 oz pur e alcohol) Comments No Sex and Gender Information Value Date Recorded Sex Assigned at Not on file 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 Sex Female 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 Gender Identity Not on file Sexual Orientation Not on file 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 as of this encounter Plan of Treatment Not on file documented as of this encounter Visit Diagnoses Not on filedocumented in this encounter Care Teams Environmental Services Attendant Relationship Specialty Start Date End Date Neftaly Smith MD PCP - General Family Practice 09/29/11 10/25/16 Aurora Reyes PA-C PCP - General Physician Inspector [employer] 10/26/16 07/03/23 Aurora Reyes PA-C [place] [id number] [facility] [address] [place] [address] PCP - Assigned PCP 10/15/16 08/06/18 Lavern Birmingham MD [address] [place] [address] PCP - General Family Medicine 11/15/23 Aurora Reyes PA-C [address] [place] [address] Assigned PCP 10/15/16 05/29/20 [place] [address] [place] [address] Assigned Surgical Provider 11/25/23 documented as of this encounter
--- OUTSIDE RECORDS SUMMARY | 2024-10-14 23:33 | XMS_ITS | Encounter Summary ---
Author Organization [place] Address [address] [place] [address] Care Team Providers Care Barrel Polisher Inside Name Role Phone Neftaly Smith MD Primary Care Provider [phone] Aurora Reyes PA-C Primary Care Provider Aurora Reyes PA-C Unavailable [phone] Aurora Reyse PA-C Unavailable [phone] Lavern Birmingham MD Primary Care Provider [phone] Keith Frost MD Unavailable [phone] Encounter Details Date Type Department Care Team (Late st Contact Info) Description 03/05/2015 My[facility] Medical Advice [facility] [address] [place] [address] Kip Osorio, TEAM SUPERVISOR Social History Tobacco Use Types Packs/Day Years Used Date Smoking Tobacco: Former Cigarettes 0.5 3 1 07/14/1970 - 05/28/1974 Smokeless Tobacco: Never Alcohol Use Standard Drinks/Week Comments No 0 (1 standard drink = 0.6 oz pur e alcohol) Comments No Sex and Gender Information Value Date Recorded Sex Assigned at Not on file 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 Gender Identity Not on file Sexual Orientation Not on file 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 as of this encounter Plan of Treatment Not on file documented as of this encounter Visit Diagnoses Not on filedocumented in this encounter Care Teams Barrel Polisher Inside Relationship Specialty Start Date End Date Neftaly Smith MD PCP - General Family Practice 09/29/11 10/25/16 Aurora Reyes PA-C PCP - General Physician Process Developer 10/26/16 07/03/23 Aurora Reyes PA-C [facility] [address] [facility] [address] [place] [address] PCP - Assigned PCP 10/15/16 08/06/18 Lavern Birmingham MD [address] [place] [address] PCP - General Family Medicine 11/15/23 Aurora Reyes PA-C [place] [id number] [facility] [address] [place] [address] Assigned PCP 10/15/16 05/29/20 [place] [address] [place] [address] Assigned Surgical Provider 11/25/23 documented as of this encounter
--- OUTSIDE RECORDS SUMMARY | 2024-10-14 23:33 | XMS_ITS | Encounter Summary ---
Author Organization [place] Address [address] [place] [address]. 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
--- OUTSIDE RECORDS SUMMARY | 2024-10-14 23:33 | XMS_ITS | Clinical Summary ---
Author Organization [facility] Address [address] [place] [address] Care Team Providers Care Rn Orthopaedic Name Role Phone Lavern Birmingham MD Primary Care Provider Allergies Active Allergy Reactions Criticality Noted Date Comments Chlorthalidone Itching 07/26/2007 Codeine Nausea And Vomiting 06/10/2007 Fentanyl Vomiting Gabapentin Rash,Other - Describ e In Comment Field 01/19/2015 Hands and feet become red and have a tingling feeling. Grass Pollen Headache,Other - Describe In Comment Field,Runny Nose 11/27/2023 Medications MULTIVITAMIN TAB take 1 tablet by oral route once daily with food 0 7 Active FISH OIL OMEGA 3-6-9 1,000 MG-300 MG CAP Once daily 0 7 Active GARLIC 400 MG TAB, DELAYED RELEASE Once daily 0 7 Active ascorbic acid, vitamin C, (Vitamin C) 1,000 mg tablet 3 Active Cholecalciferol, Vitamin D3, (Vitamin D-3) 400 unit capsule Active Magnesium 200 mg tab Active vitamin e 400 unit capsule Active lisinopriL 20 mg tabletIndications :Primary hypertension Take 1 Tablet (20 mg) by mouth once daily. 100 Tablet 5 Active lisinopriL (PRINIVIL; ZESTRIL) 20 mg tabletIndications :Primary hypertension Take 1 Tablet (20 mg) by mouth once daily. 100 Tablet 3 4 09/30/19 25 Discontinu ed(Reorder (E-cancel not sent)) Active Problems Problem Noted Date Diagnosed Date Degenerative arthritis of hip 01/18/2015 S/P total hip arthroplasty 08/13/2013 Hyperlipidemia LDL goal <130 03/14/2012 Fibromyalgia 03/29/2010 Myalgia and myositis, unspecified 07/05/2007 Allergic rhinitis, cause unspecified 11/28/2006 Unspecified essential hypertension 11/28/2006 Pure hypercholesterolemia 11/28/2006 Encounters Date Type Department Care Team Description 09/29/2024 Refill [facility] [address] [place] [address] Lavern Birmingham MD Refill Request (Lisinopril 20mg tablet) from Last 3 Months Immunizations Immunization Administration Dates Next Due Influenza Intradermal PF 18-64 yrs 03/08/2011 Td (Age >=7 Years) 08/02/1998 Tdap 02/15/2009 Family History Medical History Relation Name Comments Heart Disease Father d46 mi Hypertension Father Cancer-breast Maternal Grandmother diagno sed at age 68 Stroke Mother Other Sister 1 corticobasal sy ndrome, parkinson like disease Crohn's disease Sister 2 Ulcerative colitis Sister 2 Cancer-colon No Family History Diabetes No Family History Relation Name Status Comments Father Maternal Grandmother Mother Sister 1 Sister 2 Sister 3 Alive Sister 4 Alive Social History Tobacco Use Types Packs/Day Years Used Date Smoking Tobacco: Former Cigarettes 0.5 4 0 06/04/1969 - 06/04/1973 Smokeless Tobacco: Never Tobacco Cessation:Counseling Given: Yes Alcohol Use Standard Drinks/Week Comments Yes 0 (1 standard drink = 0.6 oz pur e alcohol) rare PHQ-2 Answer Date Recorded PHQ-2 TOTAL SCORE 0 02/13/2023 Social Connections Answer Date Recorded Do you often feel lonely or isolated from those around you? 0 10/04/2023 Financial Resource Strain Answer Date R ecorded Difficulty of Paying Living Expenses 3 02/13/2023 Difficulty of Paying Living Expenses Not on file 02/13/2023 Food Insecurity Answer Date Recorded Do you worry your food will run out before you are able to buy more? 1 10/04/2023 Transportation Needs Answer Date Record ed Does lack of transportation keep you from medica l appointments? 1 10/04/2023 Does lack of transportation keep you from work, meetings or getting things that you need? 1 10/04/2023 Housing Stability Answer Date Recorded What is your housing situation today? 1 10/04/2023 Utilities Answer Date Recorded Do you have trouble paying f or utilities (for example, heat, electricity, water, phone)? 1 10/04/2023 Comments No Sex and Gender Information Value Date Recorded Sex Assigned at Not on file Legal Sex Female 6:31 AM BILLIARD PARLOR MANAGER Gender Identity Not on file Sexual Orientation Not on file Obstetrics History Last Filed Vital Signs Vital Sign Reading Time Taken Comments Blood Pressure 132/78 12/25/2023 8:11 AM CDT Pulse 88 12/25/2023 8:11 AM CDT Temperature 36.6 C (97.9 F) 02/23/2023 9:28 AM CDT Respiratory Rate - - Oxygen Saturation 100% 12/25/2023 8:11 AM CDT Inhaled Oxygen Concentration - - Weight 61.2 kg (135 lb) 12/25/2023 8:11 AM CDT Height 161.5 cm (5' 3.58) 02/23/2023 9:28 AM CD T Body Mass Index 23.48 02/23/2023 9:28 AM CDT Plan of Treatment Health Maintenance Due Date Last Done Comments Pneumococcal series for age 50+ (1 of 1 - PCV) 2002 Zoster (shingles) series for age 50+ (1 of 2) 2002 RSV vaccine for adults or (1 - Risk 60-74 years 1-dose series) 2012 Tetanus booster 02/15/2019 02/15/2009, 08/02/1998 Depression screening for age 12+ 02/02/2023 02/02/2022, 02/02/2022, 12/09/2020, Additional history exists COVID-19 vaccine series ( - season) 2024 BMI (ht and wt on same day) for age 18+ 02/24/2024 02/23/2023, 02/02/2022, 12/09/2020 Medicare Wellness for age 65+ 02/24/2024, 02/02/2022, 12/09/2020 Influenza Vaccine (Season Ended) 2025 03/08/20 11 Mammogram for age 45-75 02/24/2025 02/25/20 24, 01/31/2022, 02/15/2009, Additional history exists Fecal testing sDNA-FIT (Maple guard) for age 45-75 02/19/2027 02/20/2024 (Completed outsid e of Sally) Lipids for age 45-75 02/24/2028 02/23/2023, 12/09/2020, 08/11/2008, Additional history exists Tdap Completed 02/15/2009 Hepatitis C screening for ag e 18-79 Completed 12/09/2020 DEXA/DXA scan for age 65+ Completed 02/02/2022, 03/2008 Procedures Procedure Name Priority Date/Time Associated Diagnosis Comments XR MAMMO TORI BILAT SCREEN Routine 02/25/2024 9:05 AM CDT Visit for screening mammogram LIPID PANEL W REFLEX MEASURED LDL Routine 02/23/2023 10:25 AM CDT Screening cholesterol level XR DXA BONE DENSITY 1 SITE AXIAL AND 1 SITE PERIPHERAL Routine 02/02/2022 11:16 AM CDT Osteoporosis screening Unspecified menopausal and perimenopausal disorder ANTI HCV Routine 12/09/2020 9:45 AM CDT Need for hepatitis C screening test from Last 3 Months or Most Recently Relevant to Health Maintenance Results * XR MAMMO TORI BILAT SCREEN (02/25/2024 9:05 AM CDT) Anatomical Region Laterality Modality BREASTS, Breast Left, Breast Right Bilateral Mammography Impressions 02/27/2024 11:39 AM CDT There is no radiographic evidence for malignancy. Recommend annual mammograms. MAMMOGRAM ASSESSMENT: ACR 1 Negative PATIENTS: You will also receive a letter with your examination results in an easy to read format. If you have questions about your results, please contact your referring provider. Narrative 02/27/2024 11:39 AM CDT For Patients: As a result of the Cures Act, medical imaging exams and procedure reports are released immediately into your electronic medical record. You may view this report before your referring provider. If you have questions, please contact your health care provider. XR MAMMO TORI BILAT SCREEN [[id number]] CLINICAL HISTORY: This is an asymptomatic 73 y.o. patient. INDICATION FOR EXAM: Mammogram Screening. TECHNIQUE: CC & MLO views were obtained. This study was evaluated with the assistance of Computer-Aided Detection. Breast Tomosynthesis was used in interpretation. COMPARISON FILM: Yes 01/31/[address] [facility] FINDINGS: There are scattered areas of fibroglandular density. There are no dominant masses, suspicious micro calcifications or areas of architectural distortion. Lavern Birmingham MD MAMMO Final Resul t * (ABNORMAL) LIPID PANEL W REFLEX MEASURED LDL (02/23/2023 10:25 AM CDT) CHOLESTEROL,TOTAL 229(H) 100 - 199 mg/dL 02/23/2023 3:53 PM CDT [facility] Comment: Cholesterol, Total Reference Ranges Desirable <200 mg/dL Borderline 200-239 mg/dL High >=240 mg/dL TRIGLYCERIDES 78 <150 mg/dL 02/23/2023 3:53 PM CDT [facility] HDL CHOLESTEROL 73 >40 mg/dL 3:53 PM CDT [facility] NON-HDL CHOLESTEROL 156(H) <145 mg/dl 02/23/2023 3:53 PM CDT [facility] CHOL/HDL RATIO 3.14 <4.50 02/23/2023 3:53 PM CDT [facility] LDL CHOLESTEROL 140(H) <=130 mg/dL 02/23/2023 3:53 PM CDT [facility] VLDL CHOLESTEROL 16 <=30 mg/dL 02/23/2023 3:53 PM CDT [facility] PROVIDER ORDERED STATUS RANDOM 02/23/2023 3:53 PM CDT [facility] Blood BLOOD SPECIMEN / Unknown Venipuncture / Unknown 02/23/2023 10:25 AM CDT 02/23/2023 10:26 AM CDT Inge NOVA CHEMISTRY Final R esult [facility] [address] [place] [address], * (ABNORMAL) XR DXA BONE DENSITY 1 SITE AXIAL AND 1 SITE PERIPHERAL (02/02/2022 11:16 AM CDT) Anatomical Region Laterality Modality LUMBAR SPINE Other Impressions 02/09/2022 12:40 PM CDT Osteoporosis. RECOMMENDATIONS: The National Osteoporosis Foundation recommends pharmacologic treatment for patients with T-scores of -2.5 or less, patients with prior history of fragility fractures, or patients with 10-year probability of greater than 3% at hips or greater than 20% of suffering major osteoporotic fractures. Recommend continued optimization of calcium and vitamin D intake through dietary means and/or supplementation and regular exercise. Consider pharmacologic therapy for osteoporosis. Follow-up bone density reading in 2 years if therapy initiated to assess therapeutic efficacy. Inge St PA-C [facility] 02/09/2022 Narrative 02/09/2022 12:40 PM CDT For Patients: Results are automatically released to your [facility] ([email or web address]) account once available, in compliance with federal regulations. This means that you may see your results before your provider has had a chance to review them. Please allow 2-3 business days for your provider to comment on the results. XR DXA Bone Mineral Density (BMD) EXAM LOCATION: [address] [address] PATIENT NAME: Raina Ba DATE OF : 1950 EXAM DATE: 02/02/2022 REQUESTING PROVIDER: Lavern Birmingham MD GENDER AT : female HEIGHT: 5' 4.25 (02/02/2022) WEIGHT: 133 lb 12.8 oz (02/02/2022) MENOPAUSAL STATUS: Postmenopausal RACE/ETHNICITY: White RISK FACTORS: Family History of Osteoporosis, Smoking (prior) and White Race CURRENT MEDICATION FOR BONE LOSS: NONE INDICATION: Screening for osteoporosis COMPARISON DATE(S): 2007 DXA scans are compared to prior studies for a patient only when the two (or more) studies were performed on the same scanner. It is not possible to compare data generated on one scanner to data from another because there are not standards in DXA equipment. This applies even if the two scanners are made by the same under presser. PROCEDURE: Dual-energy x-ray absorptiometry performed with routine technique. Reporting is completed in the form of a T-score. The T-score represents the standard deviation from peak bone mass based on young healthy adult. A Z-score is used for diagnosis in premenopausal women, and for men under the age of 50. FINDINGS: RESULT LUMBAR SPINE L1 - L4 BMD: 0.982 g/cm2 T-Score: - 1.7 Z-Score: + 0.1 Change from prior in 2007: Decrease 17.2%. RESULT FOREARM Left Forearm distal radius BMD: 0.451 g/cm2 T-Score: - 3.7 Z-Score: - 2.0 Change from prior: None WHO criteria: Normal: T-score at or above -1 SD Osteopenia: T-score between -1.1 and -2.4 SD Osteoporosis: T-score at or below -2.5 SD Lavern Birmingham MD DEXA Final Resul t * ANTI HCV [[id number]] (12/09/2020 9:45 AM CDT) Pathologist [facility] HEPATITIS C ANTIBODY Non-React rudolph Non-React rudolph 12/09/2020 6:20 PM CDT [facility] Comment:Antibodies to HCV no t detected; does not exclude the possibility of exposure to HCV. Blood BLOOD SPECIMEN / Unknown Venipuncture / Unknown 12/09/2020 9:45 AM CDT 12/09/2020 9:45 AM CDT Lavern Birmingham MD SEND OUTS Final Resul t [facility] [address] [place] [address], from Last 3 Months or Most Recently Relevant to [place] [id number] [facility] MR Care Teams Rn Orthopaedic Relationship Specialty Start Date End Date Lavern Birmingham MD [address] [place] [address] PCP - General Family Practice 01/25/22
--- OUTSIDE RECORDS SUMMARY | 2024-10-14 23:33 | XMS_ITS | Encounter Summary ---
Author Organization [facility] Address [address] [place] [address] Care Team Providers Care Dry Chain Puller Name Role Phone Neftaly Smith MD Primary Care Provider [phone] Aurora Reyes PA-C Primary Care Provider Aurora Reyes PA-C Unavailable [phone] Aurora Reyes PA-C Unavailable [phone] Lavern Birmingham MD Primary Care Provider [phone] Keith Frost MD Unavailable [phone] Encounter Details Date Type Department Care Team (Late st Contact Info) Description 02/09/[address] 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 as of this encounter Plan of Treatment Not on file documented as of this encounter Visit Diagnoses Not on filedocumented in this encounter Care Teams Dry Chain Puller Relationship Specialty Start Date End Date Neftaly Smith MD PCP - General Family Practice 09/29/11 10/25/16 Aurora Reyes PA-C PCP - General Physician [employer] Truck Driver 10/26/16 07/03/23 Aurora Reyes PA-C [place] [id number] [facility] [address] [place] [address] PCP - Assigned PCP 10/15/16 08/06/18 Lavern Birmingham MD [address] [place] [address] PCP - General Family Medicine 11/15/23 Aurora Reyes PA-C [address] [place] [address] Assigned PCP 10/15/16 05/29/20 [place] [address] [place] [address] Assigned Surgical Provider 11/25/23 documented as of this encounter
[2024-10-14 23:34] VITALS: BP 167/92; PULSE 78; RESP 18; TEMP 36.2; O2SAT 100; BMI 22.3
--- NOTE | 2024-10-15 00:13 | CRLHL7_ITS ---
For Patients: As a result of the Cures Act, medical imaging exams and procedure reports are released immediately into your electronic medical record. You may view this report before your referring provider. If you have questions, please contact your health care provider. INDICATION: Chest pain TECHNIQUE: Chest radiograph 2 views COMPARISON: None FINDINGS: Mediastinum: The mediastinum is normal in appearance. The heart silhouette is normal in size and morphology. Lung: Small lung volumes are noted with mild bibasilar atelectasis. No sign of pleural effusion seen. No pneumothorax is identified. Bone and Soft tissue: Mild levoscoliosis of the thoracolumbar junction is noted. IMPRESSION: 1. Small lung volumes are noted with mild bibasilar atelectasis. Dictated by Kenji Layton MD @ 10/15/2024 12:34:51 AM Dictated by: Kenji Layton MD @ 10/15/2024 00:34:57 (Electronically Signed)
--- NOTE | 2024-10-15 00:14 | ED.GENADULT ---
HPI - General Adult General Chief complaint: Chest Pain Stated complaint: Chest pain, SOB, nausea Time Seen by Provider: 10/15/24 00:03 Source: patient Mode of arrival: ambulatory Limitations: no limitations History of Present Illness HPI narrative: 73-year-old female with no prior cardiac history presents to the emergency department for evaluation of chest pain that started at 7:00 p.m. which is 4-1/2 hours prior to arrival. No trauma or injury. No fever. No productive cough. No shortness of breath. Symptoms are not exertional, present at rest equally to with light movement. No prior history of coronary artery disease, no history of CHF. No prior coronary interventions. Reports that she has a history of fibromyalgia and initially thought that the pain was related to costochondritis, as things felt similar. Pain is achy and constant, horizontal band like across the anterior chest. Cannot be reproduced with palpation. Has been having nausea and loose stools for the past few days. Tried taking some Pepto-Bismol with some improvement of symptoms, has not had any loose stools now in about 9 hours. Eating and drinking normally. Does have a prior history of a cholecystectomy. No prior bowel obstruction. No history of DVT or PE. Just hoping to rule out any cardiac abnormality tonight. Reports that her past medical history is notable for fibromyalgia, hypertension. Only home medication is lisinopril. Allergy to sulfas, Versed and Tylenol. Nonsmoker. ROS notable for the GI and chest symptoms as above, otherwise denies times 12 systems. Related Data Home Medications ?Medication ?Instructions ?Recorded ?Confirmed lisinopril 20 mg tablet 20 mg PO DAILY 10/14/24 10/14/24 Allergies Allergy/AdvReac Type Severity Reaction Status Date / Time acetaminophen (From Tylenol) Allergy Vomiting Verified 10/14/24 23:40 midazolam (From Versed) Allergy Vomiting Verified 10/14/24 23:40 Sulfa (Sulfonamide Allergy Unknown Verified 10/14/24 23:40 Antibiotics) [facility] Social History Smoking Status: Never smoker Do you use any of these nicotine containing products: None Second hand tobacco smoke exposure: No How often do you have a drink containing alcohol: never How often do you have six or more drinks on one occasion: Never AUDIT-C Alcohol total score: 0 Non-prescribed substance use: denies use service: No Exam Const: Vital Signs, click to edit/add: Vital Signs - 24 hr 10/14/24 23:34 10/15/24 01:21 Temperature 97.1 F L Pulse Rate [Left P ulse Oximeter] 78 86 Respiratory Rate 18 16 Blood Pressure [Ri ght Upper Arm] 167/92 H 155/87 H Pulse Oximetry 100 95 Oxygen Delivery Me thod Room Air Room Air Documenting provider has reviewed patient's vital signs: yes General appearance: cooperative, comfortable and well kempt HENMT: Common normals: normocephalic, moist oral mucous membranes and oropharynx normal Head and scalp: normocephalic Face and sinus: normal facial exam Mouth: oral and palatal mucosa normal Eye: Common normals: conjunctivae normal General eye: normal appearance of both eyes Conjunctiva: conjunctiva(e) normal Neck & C-Spine: General: normal visual inspection Lymph: Lymphatic: no lymphadenopathy noted Chest: Common normals: inspection of chest normal and palpation of chest normal Resp: Common normals: normal respiratory effort, no use of accessory muscles and clear to auscultation bilaterally Effort & inspection: able to speak in complete sentences Auscultation: clear to auscultation bilaterally Cardio: Common normals: regular rate, regular rhythm, S1 normal heart sound, S2 normal heart sound and no murmurs Rate: regular rate Rhythm: regular rhythm Heart sounds: S1 normal and S2 normal GI: Common normals: Normal to inspection, nondistended, normoactive bowel sounds present, soft to palpation, no hepatosplenomegaly and no masses Palpation: soft and no hepatosplenomegaly Other: Mild epigastric tenderness only, no rebound tenderness or guarding Back & Pelvis: Common normals: thoracic and lumbar spine normal to inspection Extremity: Common normals: normal to inspection, normal capillary refill and no pedal edema Neuro: Speech: speech normal Motor exam: strength 5/5 throughout, no tremor noted and no movement abnormalities noted Psych: Common normals: speech normal Appearance: well kempt Attitude: engaged Activity/motor behavior: appropriate eye contact Speech: normal speech Mood and affect: euthymic mood Insight: insight good Judgement: judgment good Skin: Common normals: no rashes or lesions noted General skin exam: no rashes or lesions noted Course Course ED Course: 73-year-old female with 4+ hours of vague chest pain at rest. Differential diagnosis including acute coronary syndrome, pulmonary embolism, pneumonia, congestive heart failure, acute respiratory process, bronchospasm, amongst others including referred intra-abdominal process. I suspect that her symptoms are more likely related to a GI process as they are nonexertional. I have recommended veneer jointer operator, EKG, typical cardiac labs. Will also try giving famotidine, Maalox and Zofran to see if this improves her symptoms. Chest x-ray, await findings. Reevaluation(s) Time of Reevaluation #1: 01:48 Reevaluation #1: Patient feeling better after the GI medications. We reviewed the normal chest x-ray, CT and lab findings. She reports that she does have both Zofran and omeprazole at home. I have encouraged her to start taking omeprazole once daily in the afternoon for the next 5 days as I do think the source of her pain is GI since things get better with treating that source. If symptoms are not improving in 10 days, would recommend that she make a follow-up appoint with her primary care provider to discuss further workup, consideration of endoscopy, H pylori testing and other workup. I have also discussed Imodium if needed for diarrhea. Exertional symptoms, severe shortness of breath, rapid worsening when all warrant re-evaluation in the emergency department. Alarm symptoms reviewed, written instructions provided, all questions answered. Vital Signs Vital signs: Initial Vital Signs Temperature 97.1 F L 10/14/24 23:34 Temperature Source Temporal Artery Scan 10/14/24 23:34 Pulse Rate 78 10/14/24 23:34 Respiratory Rate 18 10/14/24 23:34 Blood Pressure 167/92 H 10/14/24 23:34 Blood Pressure Mean 117 H 10/14/24 23:34 Blood Pressure Position Sitting 10/14/24 23:34 Pulse Oximetry 100 10/14/24 23:34 Oxygen Delivery Method Room Air 10/14/24 23:34 Vital Signs Temperature 97.1 F L 10/14/24 23:34 Pulse Rate 78 10/14/24 23:34 Respiratory Rate 18 10/14/24 23:34 Blood Pressure 167/92 H 10/14/24 23:34 Pulse Oximetry 100 10/14/24 23:34 Oxygen Delivery Method Room Air 10/14/24 23:34 Temperature 97.1 F L 10/14/24 23:34 Pulse Rate 86 10/15/24 01:21 Respiratory Rate 16 10/15/24 01:21 Blood Pressure 155/87 H 10/15/24 01:21 Pulse Oximetry 95 10/15/24 01:21 Oxygen Delivery Method Room Air 10/15/24 01:21 Medications Administered Medications: Discontinued Medications Generic Name Dose Route Start Last Admin Trade Name Cooperq PRN Reason Stop Dose Admin Famotidine 20 mg 10/15/24 00:18 10/15/24 00:56 Famotidine 20 Mg Tablet PO 10/15/24 00:19 20 mg ONCE ONE Administration Lidocaine/Aluminum/Magnesium/Simeth 15 ml 10/15/24 00:19 10/15/24 00:57 Mag Hydrox/Aluminum Hyd/Simeth 30 Ml Oral.Susp PO 10/15/24 00:20 15 ml ONCE ONE Administration Ondansetron HCl 4 mg 10/15/24 00:18 10/15/24 00:57 Ondansetron Odt 4 Mg Tab PO 10/15/24 00:19 4 mg ONCE ONE Administration Medical Decision Making Lab Data Lab results reviewed: Yes I reviewed the patient's lab results Lab results narrative: Reassuring labs. No leukocytosis, anemia, elevated liver enzymes, pancreatitis, cardiac abnormalities. D-dimer was borderline elevated, patient elect to pursue CT of the chest which was also thankfully normal. Labs: Lab Results 10/15/24 10/15/24 Range/Units 00:00 00:13 WBC 9.40 (4.50-11.00) K/uL RBC 4.43 (4.00-5.20) m/uL Hgb 13.8 (12.0-16.0) gm/dL Hct 42.7 (33.0-51.0) % MCV 96 (80-100) fL MCH 31 (26-34) pg MCHC 32 (32-36) gm/dL RDW Coeff of Nunu 12.3 (11.5-15.5) % Plt Count 296 (140-440) K/uL Neut % (Auto) 49.6 (42.0-72.0) % Lymph % (Auto) 32.3 (20-44) % Burleigh % (Auto) 10.6 (0.0-11.0) % Eos % (Auto) 7.0 (0.0-7.0) % Baso % (Auto) 0.3 (0.0-3.0) % Neut # (Auto) 4.65 (1.7-7.0) K/uL Lymph # (Auto) 3.04 H (0.90-2.90) K/uL Burleigh # (Auto) 1.00 H (0.00-0.90) K/UL Eos # (Auto) 0.66 H (0.00-0.50) K/uL Baso # (Auto) 0.03 (0.00-0.30) K/uL Abs Immat Gran (auto) 0.02 (0.00-0.30) K/uL Imm/Tot Granulo (auto) 0.2 % D-Dimer Quant (PE/DVT) 1.04 H (0.00-0.50) ug/ml Sodium 137 (135-149) mmol/L Potassium 4.6 (3.6-5.1) mmol/L Chloride 99 (96-114) mmol/L Carbon Dioxide 30 (20-32) mmol/L Anion Gap 8 (7-15) mEq/L BUN 14 (7-30) mg/dL Creatinine 0.7 (0.5-1.5) mg/dL Estimated Creat Clear 44.56 Estimated GFR 92 ml/min Glucose 91 (60-115) mg/dL Calcium 10.3 (8.4-10.6) mg/dL Total Bilirubin 0.9 (0.1-1.5) mg/dL AST 39 H (12-35) U/L ALT 20 (4-35) U/L Alkaline Phosphatase 68 (40-150) U/L NT-Pro-B Natriuret Pep 104 pg/mL Total Protein 8.0 (6.0-8.3) g/dL Albumin 4.6 (3.3-5.0) g/dL Lipase 194 (23-300) U/L POC Troponin I 0.00 L (0.01-0.04) ng/ml Imaging Data CT scan - chest: Attestation: I have reviewed the pertinent imaging results. My impression: No evidence of pulmonary embolism, infiltrate, effusion or other abnormality. Normal chest CT Radiologist's impression: IMPRESSION: 1. No CT evidence of acute pulmonary emboli seen. Dictated by Kenji Layton MD @ 10/15/2024 1:30:21 AM Chest x-ray: Attestation: I have reviewed the pertinent imaging results. My impression: Normal chest x-ray, no infiltrate, cardiomegaly or other abnormality. Radiologist's impression: IMPRESSION: 1. Small lung volumes are noted with mild bibasilar atelectasis. Dictated by Kenji Layton MD @ 10/15/2024 12:34:51 AM Discharge Plan Discharge Clinical Impression: Atypical chest pain Patient Disposition: Home w/ Parent or Adult Condition: Improved Instructions: Noncardiac Chest Pain (ED) Additional Instructions: As we discussed, I think the source of your chest pain was referred in from the stomach and the esophagus. I would recommend that you take omeprazole 20 mg switch is the [id number] dose once daily in the afternoon for the next 5 days. You were given a dose of famotidine and Zofran here in the emergency department. I am glad that these were helpful for you. There are no signs of abnormalities in your heart, lungs, blood clots or other abnormalities. This is great news. It is okay to use ibuprofen as needed for mild discomfort. If symptoms are not improving in 10 days, I would recommend a follow-up with your primary care team to discuss further testing including possible endoscopy, testing for H pylori and other workup. Any severe worsening of symptoms would warrant coming back to the emergency department. Activity Level: No Restrictions Discharge Diet: Regular Prescriptions: No Action lisinopril 20 mg tablet 20 mg PO DAILY Follow Up/Referrals: Lavern Birmingham MD [Primary Care Provider] - Stand Alone Forms: [facility] Info Instructions
--- OUTSIDE RECORDS SUMMARY | 2024-10-15 00:24 | XMS_ITS | Clinical Summary ---
Author Organization [facility] Address [address] [place] [address] Care Team Providers Care Machine Sorter Name Role Phone Lavern Birmingham MD Primary Care Provider Keith Frost MD Unavailable [phone] Allergies Active Allergy Reactions Criticality Noted [...] migh t be different from the original. 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 03/03/20220-0 5 0-20 / [id number] Imp Scr Zim 6.5x35mm Acet Cup Self Tap [id number] Implanted:Qty: 1 on 05/08/2012 by Shorty Mcnamara MD at [facility] Left: Hip [employer] 01/31/2022-0-0 6 5-35 / [id number] Imp Scr Zim 6.5x20mm Acet Cup Self Tap [id number] Implanted:Qty: 1 on 05/08/2012 by Shorty Mcnamara MD at [facility] Left: Hip [employer] 05/03/20200-0 6 5-20 / / [id number] Imp Liner Acetabulum Zim Xlpe [id number] Implanted:Qty: 1 on 05/08/2012 by Shorty Mcnamara MD at [facility] Left: Hip [employer] 04/02/20176305-0 5 0-32 / / [id number] Imp Stem Zim Taper Kinectiv M/L Sz 12.5 Implanted:Qty: 1 on 05/08/2012 by Shorty Mcnamara MD at [facility] Left: Hip 05/03/2021- / [id number] Imp Femoral Neck Zim Mod Taper Kinectiv E [id number] Implanted:Qty: 1 on 05/08/2012 by Shorty Mcnamara MD at [facility] Left: Hip 08/31/202148 2- / [id number] Imp Head Femoral Zim +0x32mm Implanted:Qty: 1 on 05/08/2012 by Shorty Mcnamara MD at [facility] Left: Hip 03/03/20228018-03 - / [id number] Imp Scr Zim 6.5x30mm Acet Cup Self Tap Implanted:Qty: 1 on 01/18/2015 by Shorty Mcnamara MD at [facility] Right: Hip [employer] 11/01/2024- / [id number] / [id number] Imp Scr Zim 6.5x30mm Acet Cup Self Tap Implanted:Qty: 1 on 01/18/2015 by Shorty Mcnamara MD at [facility] Right: Hip [employer] 10/01/2024 5-30 / [id number] / [id number] Imp Stem Zim Taper Kinectiv M/L Sz 13.5 [id number] Implanted:Qty: 1 on 01/18/2015 by Shorty Mcnamara MD at [facility] Right: Hip [employer] 08/01/2024-7713-01 3-00 / [id number] / [id number] Imp Head Femoral Zim Versys 36mm +0 [id number] Implanted:Qty: 1 on 01/18/2015 by Shorty Mcnamara MD at [facility] Right: Hip [employer] 12/01/2024-8018-03 6-02 / [id number] Imp Femoral Neck Zim Mod Taper Kinectiv K [id number] Implanted:Qty: 1 on 01/18/2015 by Shorty Mcnamara MD at [facility] Right: Hip [employer] 11/01/20247848-00 2-00 / [id number] Acetabular Shell 52mm Implanted:Qty: 1 on 01/18/2015 by Shorty Mcnamara MD at [facility] Right: Hip [employer] 04/03/2023 / [id number] Imp Liner Acetabulum Zim Xlpe [id number] Implanted:Qty: 1 on 01/18/2015 by Shorty Mcnamara MD at [facility] Right: Hip [employer] 06/03/2019-6305-05 0-36 / [id number] Procedures Procedure Name Priority Date/Time Associated Diagnosis Comments MA SCREENING DIGITAL BILATERAL Routine 05/02/2017 10:45 AM PHYSICS PROFESSOR Visit for screening mammogram COMPREHENSIVE METABOLIC PANEL Routine 10/05/2016 9:03 AM CDT Idiopathic progressive polyneuropathy LIPID REFLEX TO DIRECT LDL PANEL Routine 10/06/2015 7:40 AM CDT Hyperlipidemia LDL goal <130 COLONOSCOPY Routine 11/06/2011 from Last 3 Months or Most Recently Relevant to Health Maintenance Results * MA Screening Digital Bilateral (05/02/2017 10:45 AM PHYSICS PROFESSOR) Anatomical Region Laterality Modality Breast Bilateral Mammography Impressions 05/03/2017 8:49 AM PHYSICS PROFESSOR IMPRESSION: BI-RADS CATEGORY: 2 - Benign Finding(s). RECOMMENDED FOLLOW-UP: Annual Mammography Results to be sent to patient. I have personally reviewed the examination and initial interpretation and I agree with the findings. JUAN VASQUEZ MD Narrative 05/03/2017 8:49 AM PHYSICS PROFESSOR SCREENING MAMMOGRAM, BILATERAL, DIGITAL, with CAD HISTORY: [...] CDT) Sodium 141 133 - 144 mmol/L [facility] Potassium 4.5 3.4 - 5.3 mmol/L [facility] Chloride 104 94 - 109 mmol/L [facility] Carbon Dioxide 28 20 - 32 mmol/L [facility] Anion Gap 9 3 - 14 mmol/L [facility] Glucose 91 70 - 99 mg/dL [facility] Urea Nitrogen 16 7 - 30 mg/dL [facility] Creatinine 0.66 0.52 - 1.04 mg/dL [facility] GFR Estimate >90 Non GFR Calc >60 mL/min/1. 7m2 [facility] GFR Estimate If Black >90 GFR Calc >60 mL/min/1. 7m2 [facility] Calcium 9.9 8.5 - 10.1 mg/dL [facility] Bilirubin Total 0.5 0.2 - 1.3 mg/dL [facility] Albumin 4.0 3.4 - 5.0 g/dL [facility] Protein Total 8.0 6.8 - 8.8 g/dL [facility] Alkaline Phosphatase 68 40 - 150 U/L [facility] ALT 28 0 - 50 U/L [facility] AST 16 0 - 45 U/L [facility] Blood specimen (specimen) 10/05/2016 9:03 AM CDT 10/05/2016 9:04 AM CDT Aurora Reyes PA-C LAB - BLOOD ORDERABLES Final Result [facility] [address] [place] [address] * (ABNORMAL) Lipid panel reflex to direct LDL (10/06/2015 7:40 AM CDT) Cholesterol 227(H) <200 mg/dL [facility] Comment:Desirable: <200 mg/d l Triglycerides 79 <150 mg/dL [facility] Comment:Fasting specimen HDL Cholesterol 61 >49 mg/dL [facility] LDL Cholesterol Calculated 150(H) <100 mg/dL [facility] Comment: Above desirable: 100-129 mg/dl Borderline High: 130-159 mg/dL High: 160-189 mg/dL Very high: >189 mg/dl Non HDL Cholesterol 166(H) <130 mg/dL [facility] Comment: Above Desirable: 130-159 mg/dl Borderline high: 160-189 mg/dl High: 190-219 mg/dl Very high: >219 mg/dl Blood specimen (specimen) 10/06/2015 7:40 AM CDT 10/06/2015 8:15 AM CDT us Bao Rodney MD LAB - BLOOD ORDERABLES Fi nal Result [facility] [address] [place] [address] * COLONOSCOPY (11/06/2011) us Neftaly Smith MD PROCEDURES Final Result from Last 3 Months or Most Recently Relevant to Health Maintenance Insurance [employer] MEDICARE ADVANTAGE [employer] MEDICARE ADVANTAGE Advance Directives For more information, please contact: [phone] Documents on File Type Date Recorded 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
--- OUTSIDE RECORDS SUMMARY | 2024-10-15 00:24 | XMS_ITS | Encounter Summary ---
Author Organization [facility] Address [address] [place] [address] Care Team Providers Care Aluminum Boats Assembler Name Role Phone Aurora Reyes PA-C Primary Care Provider Aurora Reyes PA-C Unavailable [phone] Aurora Reyes PA-C Unavailable [phone] Lavern Birmingham MD Primary Care Provider [phone] Keith Frost MD Unavailable [phone] Encounter Details Date Type Department Care Team (Late st Contact Info) Description 01/30/2017 [facility] Blood and Marrow Transplant Program [address] [address] [facility] Social History Tobacco Use Types Packs/Day Years Used Date Smoking Tobacco: Former Cigarettes 0.5 3 1 07/14/1970 - 05/28/1974 Smokeless Tobacco: Never Alcohol Use Standard Drinks/Week Comments No 0 (1 standard drink = 0.6 oz pur e alcohol) Comments No Sex and Gender Information Value Date Recorded Sex Assigned at Not on file 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 Gender Identity Not on file Sexual Orientation Not on file 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 as of this encounter Plan of Treatment Not on file documented as of this encounter Visit Diagnoses Not on filedocumented in this encounter Care Teams Aluminum Boats Assembler Relationship Specialty Start Date End Date Aurora Reyes PA-C PCP - General Physician Computational Mathematician 10/26/16 07/03/23 Aurora Reyes PA-C [facility] [address] [facility] [address] [place] [address] PCP - Assigned PCP 10/15/16 08/06/18 Lavern Birmingham MD [address] [place] [address] PCP - General Family Medicine 11/15/23 Aurora Reyes PA-C [facility] [address] [facility] [address] [place] [address] Assigned PCP 10/15/16 05/29/20 [place] [address] [place] [address] Assigned Surgical Provider 11/25/23 documented as of this encounter
--- OUTSIDE RECORDS SUMMARY | 2024-10-15 00:24 | XMS_ITS | Encounter Summary ---
Author Organization [place] Address [address] [place] [address] Care Team Providers Care Artificial Inseminator Name Role Phone Neftaly Smith MD Primary Care Provider + [phone] Aurora Reyes PA-C Primary Care Provider Aurora Reyes PA-C Unavailable [phone] Aurora Reyes PA-C Unavailable [phone] Lavern Birmingham MD Primary Care Provider [phone] Keith Frost MD Unavailable [phone] Encounter Details Date Type Department Care Team (Late st Contact Info) Description 08/05/2015 MyC Medical Advice [facility] [address] [place] [address] [place] [address] [place] [address] Social History Tobacco Use Types Packs/Day Years Used Date Smoking Tobacco: Former Cigarettes 0.5 3 1 07/14/1970 - 05/28/1974 Smokeless Tobacco: Never Alcohol Use Standard Drinks/Week Comments No 0 (1 standard drink = 0.6 oz pur e alcohol) Comments No Sex and Gender Information Value Date Recorded Sex Assigned at Not on file 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 Gender Identity Not on file Sexual Orientation Not on file 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 as of this encounter Plan of Treatment Not on file documented as of this encounter Visit Diagnoses Not on filedocumented in this encounter Care Teams Artificial Inseminator Relationship Specialty Start Date End Date Neftaly Smith MD PCP - General Family Practice 09/29/11 10/25/16 Aurora Reyes PA-C PCP - General Physician Director Of Premium Seat Sales 10/26/16 07/03/23 Aurora Reyes PA-C [place] [id number] [facility] [address] [place] [address] PCP - Assigned PCP 10/15/16 08/06/18 Lavern Birmingham MD [address] [place] [address] PCP - General Family Medicine 11/15/23 Aurora Reyes PA-C [address] [place] [address] Assigned PCP 10/15/16 05/29/20 [place] [address] [place] [address] Assigned Surgical Provider 11/25/23 documented as of this encounter
--- OUTSIDE RECORDS SUMMARY | 2024-10-15 00:24 | XMS_ITS | Encounter Summary ---
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
--- OUTSIDE RECORDS SUMMARY | 2024-10-15 00:24 | XMS_ITS | Encounter Summary ---
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
--- OUTSIDE RECORDS SUMMARY | 2024-10-15 00:24 | XMS_ITS | Encounter Summary ---
Author Organization [place] Address [address] [facility] [place] [address] Care Team Providers Care Prehemmer Name Role Phone Aurora Reyes PA-C Primary Care Provider Aurora Reyes PA-C Unavailable [phone] Aurora Reyes PA-C Unavailable [phone] Lavern Birmingham MD Primary Care Provider [phone] Keith Frost MD Unavailable [phone] Reason for Visit * Reason Onset Date Comments MyChart Communication 03/10/2017 request narcisa wilkinson Encounter Details Date Type Department Care Team (Latest Contact Info) Description 03/10/2017 [facility] Medical Advice [facility] [address] [place] [address] [address] [place] [address] Aurora Reyes PA-C [address] [place], [place] [id number] MyCGoomzee Communication (request med, scopal... 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 as of this encounter Miscellaneous Notes * Telephone Encounter - Dory Ribera RN - 03/12/2017 7:47 AM CDT Karen See pt med request below Pharm cued Last OV 10/24/16 Dory Ribera RN [facility] documented in this encounter Plan of Treatment Not on file documented as of this encounter Visit Diagnoses Diagnosis Motion sickness, initial encounter- Primary documented in this encounter Care Teams Prehemmer Relationship Specialty Start Date End Date Aurora Reyes PA-C PCP - General Physician Beef Pusher 10/26/16 07/03/23 Aurora Reyes PA-C [address] [place] [address] PCP - Assigned PCP 10/15/16 08/06/18 Lavern Birmingham MD [address] [place] [address] PCP - General Family Medicine 11/15/23 Aurora Reyes PA-C [facility] [address] [place] [address] [address] [place] [address] Assigned PCP 10/15/16 05/29/20 [place] [address] [place] [address] Assigned Surgical Provider 11/25/23 documented as of this encounter
--- OUTSIDE RECORDS SUMMARY | 2024-10-15 00:24 | XMS_ITS | Encounter Summary ---
Author Organization [place] Address [address] [place] [address] Care Team Providers Care Bright Cutter Name Role Phone Neftaly Smith MD Primary Care Provider [phone] Aurora Reyes PA-C Primary Care Provider Aurora Reyes PA-C Unavailable [phone] Aurora Reyes PA-C Unavailable [phone] Lavern Birmingham MD Primary Care Provider [phone] Keith Frost MD Unavailable [phone] Reason for Visit * Reason Onset Date Comments MyChart Communication 07/22/2014 Encounter Details Date Type Department Care Team (Late st Contact Info) Description 07/22/2014 MyC Medical Advice [facility] [address] [place] [address] [place] [address] [place] [address] MyChart Communication Social History Tobacco Use Types Packs/Day Years Used Date Smoking Tobacco: Never Smokeless Tobacco: Never Alcohol Use Standard Drinks/Week Comments No 0 (1 standard drink = 0.6 oz pur e alcohol) Comments No Sex and Gender Information Value Date Recorded Sex Assigned at Not on file 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 Gender Identity Not on file Sexual Orientation Not on file 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 as of this encounter Plan of Treatment Not on file documented as of this encounter Visit Diagnoses Not on filedocumented in this encounter Care Teams Bright Cutter Relationship Specialty Start Date End Date Neftaly Smith MD PCP - General Family Practice 09/29/11 10/25/16 Aurora Reyes PA-C PCP - General Physician Party Planner 10/26/16 07/03/23 Aurora Reyes PA-C [place] [id number] [facility] [address] [place] [address] PCP - Assigned PCP 10/15/16 08/06/18 Lavern Birmingham MD [address] [place] [address] PCP - General Family Medicine 11/15/23 Aurora Reyes PA-C [facility] [address] [place] [address] [address] [place] [address] Assigned PCP 10/15/16 05/29/20 [place] [address] [place] [address] Assigned Surgical Provider 11/25/23 documented as of this encounter
--- OUTSIDE RECORDS SUMMARY | 2024-10-15 00:24 | XMS_ITS | Encounter Summary ---
Author Organization [place] Address [address] [place] [address]. 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
--- OUTSIDE RECORDS SUMMARY | 2024-10-15 00:24 | XMS_ITS | Encounter Summary ---
Author Organization [place] Address [facility] [place] [address] Care Team Providers Care Cafe Helper Name Role Phone Aurora Reyes PA-C Primary Care Provider Aurora Reyes PA-C Unavailable [phone] Aurora Reyes PA-C Unavailable [phone] Lavern Birmingham MD Primary Care Provider Keith Frost MD Unavailable Reason for Visit * Reason Onset Date Comments MyChart Communication 05/21/2017 Appointment 05/21/2017 Annual physical Encounter Details Date Type Department Care Team (Late st Contact Info) Description 05/21/2017 [facility] Medical Advice [facility] [address] [place] [address] [address] [place] [address] Aurora Reyes PA-C [address] [place], [place] [id number] MyChart Communication; Appointment (Annual... 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 as of this encounter Miscellaneous Notes * Telephone Encounter - Odette Kang RN - 05/21/2017 11:02 AM CST Sent mychart as per below Odette Kang RN EL POST OFFICER documented in this encounter Plan of Treatment Not on file documented as of this encounter Visit Diagnoses Not on filedocumented in this encounter Care Teams Cafe Helper Relationship Specialty Start Date End Date Aurora Reyes PA-C PCP - General Physician Sql Report Developer 10/26/16 07/03/23 Aurora Reyes PA-C [address] [place] [address] PCP - Assigned PCP 10/15/16 08/06/18 Lavern Birmingham MD [address] [place] [address] PCP - General Family Medicine 11/15/23 Aurora Reyes PA-C [facility] [address] [facility] [address] [place] [address] Assigned PCP 10/15/16 05/29/20 [place] [address] [place] [address] Assigned Surgical Provider 11/25/23 documented as of this encounter
--- OUTSIDE RECORDS SUMMARY | 2024-10-15 00:24 | XMS_ITS | Encounter Summary ---
Author Organization [place] Address [address] [place] [address]. [place] [address] Care Team Providers Care Manager Fraud Name Role Phone Neftaly Smith MD Primary Care Provider [phone] Aurora Reyes PA-C Primary Care Provider Aurora Reyes PA-C Unavailable [phone] Aurora Reyes PA-C Unavailable [phone] Lavern Birmingham MD Primary Care Provider [phone] Keith Frost MD Unavailable [phone] Encounter Details Date Type Department Care Team (Late st Contact Info) Description 04/13/2016 [facility] [address] [address] Jonah [place], [place] Social History Tobacco Use Types Packs/Day Years Used Date Smoking Tobacco: Former Cigarettes 0.5 3 1 07/14/1970 - 05/28/1974 Smokeless Tobacco: Never Alcohol Use Standard Drinks/Week Comments No 0 (1 standard drink = 0.6 oz pur e alcohol) Comments No Sex and Gender Information Value Date Recorded Sex Assigned at Not on file 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 [address] [facility] [address] [place] [address] PCP - Assigned PCP 10/15/16 08/06/18 Lavern Birmingham MD [address] [place] [address] PCP - General Family Medicine 11/15/23 Aurora Reyes PA-C [address] [place] [address] Assigned PCP 10/15/16 05/29/20 [place] [address] [place] [address] Assigned Surgical Provider 11/25/23 documented as of this encounter
--- OUTSIDE RECORDS SUMMARY | 2024-10-15 00:24 | XMS_ITS | Encounter Summary ---
Author Organization [place] Address [facility] [place] [address] Care Team Providers Care Abalone Processor Name Role Phone Aurora Reyes PA-C Primary Care Provider Aurora Reyes PA-C Unavailable [phone] Aurora Reyes PA-C Unavailable [phone] Lavern Birmingham MD Primary Care Provider Keith Frost MD Unavailable Reason for Visit * Reason Onset Date Comments MyChart Communication 11/29/2016 Stress Test Assistant Women'S Tennis Coach 11/29/2016 Encounter Details Date Type Department Care Team (Late st Contact Info) Description 11/29/2016 [facility] [place] [facility] [address] [place] [address] [address] [place] [address] Aurora Reyes PA-C [address] [place], [place] [address] MyChart Communication; Stress Test Transcr... 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 Gender Identity Not on file Sexual Orientation [...] on filedocumented in this encounter Care Teams Abalone Processor Relationship Specialty Start Date End Date Aurora Reyes PA-C PCP - General Physician Auto Mechanic Apprentice 10/26/16 07/03/23 Aurora Reyes PA-C [address] [place] [address] PCP - Assigned PCP 10/15/16 08/06/18 Lavern Birmingham MD [address] [place] [address] PCP - General Family Medicine 11/15/23 Aurora Reyes PA-C [address] [place] [address] Assigned PCP 10/15/16 05/29/20 [place] [address] [facility] [place] [place] [address] Assigned Surgical Provider 11/25/23 documented as of this encounter
--- OUTSIDE RECORDS SUMMARY | 2024-10-15 00:25 | XMS_ITS | Clinical Summary ---
Author Organization [facility] Address [address] [place] [address] Care Team Providers Care Security Incident Response Engineer Name Role Phone Unavailable Primary Care Provider Unavailabl e Source Comments Patient records contain information from all sites at [facility]. For routine questions regarding patient records, call [phone] during business hours, M-F 8:00 AM - 5:00 PM Central Time. Record requests for emergency care only can be directed to [phone] at any time.[facility] Allergies Active Allergy Reactions Criticality Noted Date [...] 180 mg (400 Unit) capsule Active omega 4-bfz-csl-fish oil 100-400-1,000 mg capsule Take 1 g by mouth daily. 12/31/2014 Active UNABLE TO FIND GARLIC Activ e Social History Tobacco Use Types Packs/Day Years Used Date Smoking Tobacco: Never Assessed [facility] Utilities Answer Date Recorded In the [...] your living situation today? I have a [facility] place to live 01/28/2024 Comments Unknown Sex and Gender Information Value Date Recorded Sex Assigned at Choose not to disclose 11:00 AM CDT Legal Sex Female 9:04 PM RN TESTING Gender Identity Female 01/28/2024 11:00 AM CDT [...] this topic Medical Devices Implanted Type Area Public Housing Interviewer Device Identifier Shelf Expiration Date Model / Serial / Lot Hip Implant Hip Implant Hip Insurance [facility]
--- OUTSIDE RECORDS SUMMARY | 2024-10-15 00:25 | XMS_ITS | Clinical Summary ---
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 XR MAMMO TORI BILAT SCREEN [[id number]] CLINICAL HISTORY: This is an asymptomatic 73 y.o. patient. INDICATION FOR EXAM: Mammogram Screening. TECHNIQUE: CC & MLO views were obtained. This study was evaluated with the assistance of Computer-Aided Detection. Breast Tomosynthesis was used in interpretation. COMPARISON FILM: Yes 01/31/22 [facility] FINDINGS: There are scattered areas of fibroglandular density. There are no dominant masses, suspicious micro calcifications or areas of architectural distortion. Lavern Birmingham MD MAMMO Final Resul t * (ABNORMAL) LIPID PANEL W REFLEX MEASURED LDL (02/23/2023 10:25 AM CDT) CHOLESTEROL,TOTAL 229(H) 100 - 199 mg/dL 02/23/2023 3:53 PM CDT [facility] Comment: Cholesterol, Total Reference Ranges Desirable <200 mg/dL Borderline 200-239 mg/dL High >=240 mg/dL TRIGLYCERIDES 78 <150 mg/dL 02/23/2023 3:53 PM CDT [facility] HDL CHOLESTEROL 73 >40 mg/dL 3:53 PM CDT [facility] NON-HDL CHOLESTEROL 156(H) <145 mg/dl 02/23/2023 3:53 PM CDT [facility] CHOL/HDL RATIO 3.14 <4.50 02/23/2023 3:53 PM CDT [facility] LDL CHOLESTEROL 140(H) <=130 mg/dL 02/23/2023 3:53 PM CDT [facility] VLDL CHOLESTEROL 16 <=30 mg/dL 02/23/2023 3:53 PM CDT [facility] PROVIDER ORDERED STATUS RANDOM 02/23/2023 3:53 PM CDT [facility] Blood BLOOD SPECIMEN / Unknown Venipuncture / Unknown 02/23/2023 10:25 AM CDT 02/23/2023 10:26 AM CDT Inge NOVA CHEMISTRY Final R esult [facility] [address] [place] [address], * (ABNORMAL) XR DXA BONE DENSITY 1 [...] to assess therapeutic efficacy. Inge St PA-C [facility] 02/09/2022 Narrative 02/09/2022 12:40 PM CDT For Patients: Results are automatically released to your [facility] ([facility]) account once available, in compliance with federal regulations. This means that you may see your results before your provider has had a chance to review them. Please allow 2-3 business days for your provider to comment on the results. XR DXA Bone Mineral Density (BMD) EXAM LOCATION: [address] [address] PATIENT NAME: Raina Ba DATE OF : [...] two scanners are made by the same internet developer. PROCEDURE: Dual-energy x-ray absorptiometry performed with routine [...] DEXA Final Resul t * ANTI HCV [[id number]] (12/09/2020 9:45 AM CDT) Pathologist [facility] HEPATITIS C ANTIBODY Non-React rudolph Non-React rudolph 12/09/2020 6:20 PM CDT [facility] Comment:Antibodies to HCV no t detected; does not exclude the possibility of exposure to HCV. Blood BLOOD SPECIMEN / Unknown Venipuncture / Unknown 12/09/2020 9:45 AM CDT 12/09/2020 9:45 AM CDT Lavern Birmingham MD SEND OUTS Final Resul t [facility] [address] [place] [address], from Last 3 Months or Most Recently Relevant to [place] [id number] [facility] MR Care Teams Manager Harbor Relationship Specialty Start Date End Date Lavern Birmingham MD [address] [facility] [place] [address] PCP - General Family Practice 01/25/22
--- OUTSIDE RECORDS SUMMARY | 2024-10-15 00:25 | XMS_ITS | Encounter Summary ---
Author Organization [facility] Address [address] [place] [address] Care Team Providers Care Shroudman Name Role Phone Neftaly Smith MD Primary Care Provider + [phone] [place] Reyes PA-C Primary Care Provider [place] Reyes PA-C Unavailable [phone] [place] Reyes PA-C Unavailable [phone] Lavern Birmingham MD Primary Care Provider [phone] Keith Frost MD Unavailable [phone] Encounter Details Date Type Department Care Team (Late st Contact Info) Description 01/05/2015 MyC Medical Advice [facility] [address] [place] [address] [place] [address] [place] [address] Social History Tobacco Use Types Packs/Day Years Used Date Smoking Tobacco: Former Cigarettes 0.5 3 1 07/14/1970 - 05/28/1974 Smokeless Tobacco: Never Alcohol Use Standard Drinks/Week Comments No 0 (1 standard drink = 0.6 oz pur e alcohol) Comments No Sex and Gender Information Value Date Recorded Sex Assigned at Not on file 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 Sex Female 5:10 AM MERCURY PURIFIER Gender Identity Not on file Sexual Orientation Not on file 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 as of this encounter Plan of Treatment Not on file documented as of this encounter Visit Diagnoses Not on filedocumented in this encounter Care Teams Shroudman Relationship Specialty Start Date End Date Neftaly Smith MD PCP - General Family Practice 09/29/11 10/25/16 [place] Reyes PA-C PCP - General Physician Alining Inspector 10/26/16 07/03/23 [place] Reyes PA-C [place] [id number] [facility] [address] [place] [address] PCP - Assigned PCP 10/15/16 08/06/18 Lavern Birmingham MD [address] [place] [address] PCP - General Family Medicine 11/15/23 [place] Reyes PA-C [address] [place] [address] Assigned PCP 10/15/16 05/29/20 [place] [address] [place] [address] Assigned Surgical Provider 11/25/23 documented as of this encounter
--- OUTSIDE RECORDS SUMMARY | 2024-10-15 00:25 | XMS_ITS | Encounter Summary ---
Author Organization [facility] Address [address] [place] [address] Care Team Providers Care Organ Teacher Name Role Phone Unavailable Primary Care Provider Unavailabl e Reason for Referral * Outpatient (Routine) - Closed Specialty Diagnoses / Procedures Referred By Lou t Referred To Contact Diagnoses Pain Hip Right Arthroplasty Total Hip Replacement Status Post Procedures DX Hip And Pelvis Right 4+ Views Ivan Lubin M.D. [address] [place] [address] Phone: tel: fax: [facility] Referral ID Status Reason Start Date Expiration Date Visits Re quested Visits Authorized [id number] Closed 09/19/2023 09/18/2024 1 1 Encounter Details Date Type Department Care Team (Late st Contact Info) Description 09/19/2023 Orders Only Department of Orthopedic Surgery in [place], [place] [address] [place] [id number] [facility], MD Isaac Pain Hip Right; Arthroplasty Total [...] AM CDT Legal Sex Female 9:04 PM PEDIATRIC NURSE Gender Identity Female 01/28/2024 11:00 AM CDT [...] ischium. Ivan Lubin M.D. [facility] [place] OC[facility] Final Result documented in this encounter Visit Diagnoses Diagnosis Pain Hip Right Arthroplasty Total Hip Replacement Status Post Pain Hip Right Arthroplasty Total Hip Replacement Status Post documented in this encounter
--- OUTSIDE RECORDS SUMMARY | 2024-10-15 00:25 | XMS_ITS | Encounter Summary ---
Author Organization [facility] Address [address] [place] [address]. 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
--- OUTSIDE RECORDS SUMMARY | 2024-10-15 00:25 | XMS_ITS | Encounter Summary ---
Author Organization [facility] Address [address] [place] [address] Care Team Providers Care Transplant Rn Name Role Phone Neftaly Smith MD Primary Care Provider + [phone] [place] Reyes PA-C Primary Care Provider [place] Reyes PA-C Unavailable [phone] [place] Reyes PA-C Unavailable [phone] Lavern Birmingham MD Primary Care Provider [phone] Keith Frost MD Unavailable [phone] Encounter Details Date Type Department Care Team (Late st Contact Info) Description 03/05/2015 MyC Medical Advice [facility] [address] [place] [address] Kip Osorio, [employer] 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 Social History Tobacco Use Types Packs/Day Years Used Date Smoking Tobacco: Former Cigarettes 0.5 3 1 07/14/1970 - 05/28/1974 Smokeless Tobacco: Never Alcohol Use Standard Drinks/Week Comments No 0 (1 standard drink = 0.6 oz pur e alcohol) Comments No Sex and Gender Information Value Date Recorded Sex Assigned at Not on file 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 Gender Identity Not on file Sexual Orientation Not on file 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 as of this encounter Plan of Treatment Not on file documented as of this encounter Visit Diagnoses Not on filedocumented in this encounter Care Teams Transplant Rn Relationship Specialty Start Date End Date Neftaly Smith MD PCP - General Family Practice 09/29/11 10/25/16 [place] Reyes PA-C PCP - General Physician Accredited Farm Manager 10/26/16 07/03/23 [place] Reyes PA-C [facility] [address] [facility] [address] [place] [address] PCP - Assigned PCP 10/15/16 08/06/18 Lavern Birmingham MD [address] [place] [address] PCP - General Family Medicine 11/15/23 [place] Reyes PA-C [place] [id number] [facility] [address] [place] [address] Assigned PCP 10/15/16 05/29/20 [place] [address] [place] [address] Assigned Surgical Provider 11/25/23 documented as of this encounter
--- OUTSIDE RECORDS SUMMARY | 2024-10-15 00:25 | XMS_ITS | Encounter Summary ---
Author Organization [facility] Address [address] [place] [address] Care Team Providers Care Endocrinology Physician Name Role Phone Neftaly Smith MD Primary Care Provider + [phone] [place] Reyes PA-C Primary Care Provider [place] Reyes PA-C Unavailable [phone] [place] Reyes PA-C Unavailable [phone] Lavern Birmingham MD Primary Care Provider [phone] Keith Frost MD Unavailable [phone] Encounter Details Date Type Department Care Team (Late st Contact Info) Description 02/09/2014 MyC Medical Advice [facility] [address] [place] [address] [place] [address] [place] [address] Social History Tobacco Use Types Packs/Day Years Used Date Smoking Tobacco: Never Smokeless Tobacco: Never Alcohol Use Standard Drinks/Week Comments No 0 (1 standard drink = 0.6 oz pur e alcohol) Comments No Sex and Gender Information Value Date Recorded Sex Assigned at Not on file 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 Gender Identity Not on file Sexual Orientation Not on file 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 as of this encounter Plan of Treatment Not on file documented as of this encounter Visit Diagnoses Not on filedocumented in this encounter Care Teams Endocrinology Physician Relationship Specialty Start Date End Date Neftaly Smith MD PCP - General Family Practice 09/29/11 10/25/16 [place] Reyes PA-C PCP - General Physician Summer Sessions Director 10/26/16 07/03/23 [place] Reyes PA-C [place] [id number] [facility] [address] [place] [address] PCP - Assigned PCP 10/15/16 08/06/18 Lavern Birmingham MD [address] [place] [address] PCP - General Family Medicine 11/15/23 [place] Reyes PA-C [address] [place] [address] Assigned PCP 10/15/16 05/29/20 [place] [address] [place] [address] Assigned Surgical Provider 11/25/23 documented as of this encounter
[2024-10-15 00:26] LABS: Basophils Absolute Auto 0.03 K/uL (0.00-0.30); Basophils Percent Auto 0.3 % (0.0-3.0); Eosinophils Absolute Auto 0.66 K/uL (0.00-0.50); Hematocrit 42.7 % (33.0-51.0); Hemoglobin* 13.8 gm/dL (12.0-16.0); Immature Granulocytes Abs Auto 0.02 K/uL (0.00-0.30); Immature Granulocytes Pct Auto 0.2 %; Lymphocytes Absolute Auto 3.04 K/uL (0.90-2.90); Lymphocytes Percent Auto 32.3 % (20-44); Mean Corpuscular HGB Conc 32 gm/dL (32-36); Mean Corpuscular Hemoglobin 31 pg (26-34); Mean Corpuscular Volume 96 fL (80-100); Monocytes Percent Auto 10.6 % (0.0-11.0); Neutrophils Absolute Auto 4.65 K/uL (1.7-7.0); Neutrophils Percent Auto 49.6 % (42.0-72.0); Platelet Count* 296 K/uL (140-440); RDW Coefficient of Variation % 12.3 % (11.5-15.5); Red Blood Count 4.43 m/uL (4.00-5.20)
[2024-10-15 00:27] LABS: Slide Review Reflex No
[2024-10-15 00:28] LABS: Albumin* 4.6 g/dL (3.3-5.0); Chloride* 99 mmol/L (96-114); Potassium* 4.6 mmol/L (3.6-5.1); Sodium* 137 mmol/L (135-149)
[2024-10-15 00:30] LABS: Alanine Aminotransferase* 20 U/L (4-35); Aspartate Amino Transferase* 39 U/L (12-35); Blood Urea Nitrogen* 14 mg/dL (7-30); Creatinine* 0.7 mg/dL (0.5-1.5); Est. Creatinine Clearance* 44.56; Estimated Glomerular Filt Rate 92 ml/min
[2024-10-15 00:31] LABS: Alkaline Phosphatase* 68 U/L (40-150); Anion Gap 8 mEq/L (7-15); Bilirubin Total* 0.9 mg/dL (0.1-1.5); Calcium* 10.3 mg/dL (8.4-10.6); Carbon Dioxide* 30 mmol/L (20-32); D Dimer Quantitative* 1.04 ug/ml (0.00-0.50); Glucose* 91 mg/dL (60-115); Lipase* 194 U/L (23-300)
--- NOTE | 2024-10-15 00:53 | CRLHL7_ITS ---
For Patients: As a result of the Century Cures Act, medical imaging exams and procedure reports are released immediately into your electronic medical record. You may view this report before your referring provider. If you have questions, please contact your health care provider. INDICATION: Chest pain, elevated D-dimer TECHNIQUE: CT chest with i.v. contrast using pulmonary angiographic technique. MIPS, coronal and sagittal reformats were obtained. CONTRAST: 95 mL Isovue 370 COMPARISON: 10/15/2024 FINDINGS: Cardiovascular: The pulmonary arteries are unremarkable in enhancement with no evidence of acute pulmonary embolism. The heart has an unremarkable appearance and size. Ectasia of the ascending aorta is noted measuring 3.6 cm in maximal short axis diameter. Moderate atherosclerotic calcifications are noted in the coronary arteries. Mediastinum: No mass or adenopathy seen. Lung: Both lungs are unremarkable in appearance. Pleura and pericardium: No sign of pleural effusion seen. No significant pericardial effusion is present. Chest wall and axilla: No mass or adenopathy seen. Bone: Unremarkable for age. Upper abdomen: Previous cholecystectomy noted with no significant intra- or extrahepatic biliary ductal dilatation seen. IMPRESSION: 1. No CT evidence of acute pulmonary emboli seen. Dictated by Kenji Layton MD @ 10/15/2024 1:30:21 AM Please note that all CT scans at this facility use dose modulation, iterative reconstruction, and/or weight-based dosing when appropriate to reduce radiation dose to as low as reasonably achievable. Dictated by: Kenji Layton MD @ 10/15/2024 01:30:24 (Electronically Signed)
[2024-10-15] MEDS: FAMOTIDINE 20 MG TABLET PO (00:56)
[2024-10-15] MEDS: MAG HYDROX/ALUMINUM HYD/SIMETH 30 ML ORAL.SUSP 15 ML PO (00:57)
[2024-10-15] MEDS: ONDANSETRON ODT 4 MG TAB PO (00:57)
[2024-10-15 01:04] LABS: NT Pro B Type NatriureticPept* 104 pg/mL
[2024-10-15 01:21] VITALS: BP 155/87; PULSE 86; RESP 16; O2SAT 95
== END 2024-10-15 02:52 | disposition home or self-care (01) ==
PROVIDERS: Emergency Provider Family Medicine; PCP Family Medicine
DX: R07.89 Other chest pain (principal)
CPT/HCPCS: 36415; 71046; 71275; 80053; 83690; 83880; 84484; 85025; 85379; 93005; 99284; 99285; A9270; Q9967